=== PATIENT | female | born 1985 | race Caucasian/White ===

== ENCOUNTER 2019-01-06 02:46 | Inpatient (IN) ==
[2019-01-06] MEDS ORDERED: SODIUM CHLORIDE 0.9% 1000ML 1,000 ML IV ONE (02:55)
[2019-01-06] MEDS ORDERED: MULTI-VITAMIN INFUSION 10 ML, THIAMINE HCL 100 MG, FOLIC ACID 1 MG in SODIUM CHLORIDE 0... IV SCH ×2 (03:00→09:00)
[2019-01-06 03:06] LABS: Basophils # (auto) 0.03 K/uL (0-0.2); Basophils % (auto) 0.2 %; Eosinophils # (auto) 0.19 K/uL (0-0.5); Eosinophils % (auto) 1.1 %; Hematocrit (blood only) 39.7 % (37-47); Hemoglobin 13.2 g/dL (12.0-16.0); Immature Granulocytes # (auto) 0.05 K/uL (0.00-0.02); Immature Granulocytes % (auto) 0.3 %; Lymphocytes # (auto) 4.54 K/uL (1.2-3.4); Lymphocytes % (auto) 26.1 %; Mean Corpuscular Hgb Conc 33.2 g/dL (32-36); Mean Corpuscular Volume 80.5 fL (80-100); Mean Platelet Volume 10.2 fL (7.4-10.4); Monocytes # (auto) 0.87 K/uL (0.11-0.59); Neutrophils # (auto) 11.71 K/uL (1.4-6.5); Neutrophils % (auto) 67.3 %; Platelet Count 452 K/uL (130-400); RDW Coefficient of Variation 15.1 % (11.5-14.5); RDW Standard Deviation 44.2 fL (36.4-46.3); Red Blood Count 4.93 M/uL (4.2-5.4); White Blood Count 17.39 K/uL (4.8-10.8)
[2019-01-06 03:19] LABS: INR 1.1 (0.9-1.1); Prothrombin Time 11.3 Seconds (9.0-12.0)
[2019-01-06 03:21] LABS: Pregnancy Test, Serum Negative (Negative)
[2019-01-06 03:26] LABS: Alanine Aminotransferase 19 U/L (12-78); Albumin Level 3.7 gm/dl (3.4-5.0); Aspartate Aminotransferase 9 U/L (15-37); Blood Urea Nitrogen 8 mg/dl (7-18); Calcium 9.1 mg/dl (8.5-10.1); Carbon Dioxide 26 mmol/L (21-32); Chloride 108 mmol/L (98-107); Creatinine Clr Calc Pharmacy 127.8 ml/min; Est GFR (African American) 97.4; Glucose 81 mg/dl (70-99); Magnesium 1.9 mg/dl (1.8-2.4); Potassium 3.6 mmol/L (3.5-5.1); Sodium 142 mmol/L (136-145)
[2019-01-06 03:29] LABS: Albumin Globulin Ratio 0.8 (0.9-2); Alkaline Phosphatase 79 U/L (45-117); Bilirubin,Total 0.4 mg/dl (0.2-1); Globulin 4.4 gm/dl (2.5-4.0); Total Protein 8.1 gm/dl (6.4-8.2)
[2019-01-06 03:39] LABS: Creatine Kinase 44 U/L (26-192); NT Pro B Type Natriuretic Pept 40 pg/ml (0-450); Troponin I < 0.015 ng/ml (0-0.045)
[2019-01-06] MEDS ORDERED: GABAPENTIN 1200MG ALCOHOL WITHDRAWAL LOAD PO STA (05:00)
--- NOTE | 2019-01-06 05:19 | History & Physical Report ---
Date of Service January 06, 2019 Assessment & Plan (1) Alcohol withdrawal: Substance abuse/alcohol withdrawal/benzodiazepine withdrawal/bipolar disorder- The patient will be admitted to telemetry for serial cardiac enzymes, serial EKG's, cardiac rhythm monitoring and a 2-D echocardiogram with Dopplers. Urine drug screen is still pending. Place on alcohol withdrawal program with gabapentin and IV Ativan. Banana bag every morning. Then NSS plus KCl 20 mEq 100 mils per hour, which will be held during each banana bag every morning NPO Consult psychiatry Dr. Upton Present on Admission?: Yes (2) Benzodiazepine withdrawal: As above Present on Admission?: Yes (3) Substance abuse: As above Present on Admission?: Yes (4) HTN (hypertension): Information not been verified. Patient reports that she is on: Terra Zosyn, spironolactone, nicardipine, losartan, labetalol and hydralazine. Present on Admission?: Yes (5) Bipolar disorder: Reportedly is on Lamictal, but this is not verified. There is a Lamictal level pending. Present on Admission?: Yes (6) Obesity: Noted Present on Admission?: Yes (7) Personal history of thromboembolic disease: The patient reportedly is on both warfarin and Lovenox, both of which will be held until verified. INR is 1.1 upon admission. Order bilateral lower extremity venous Dopplers. Order CTA pulmonary embolism protocol. Present on Admission?: Yes History of Present Illness Chief Complaint: The patient is brought to the [facility] ED from the [facility], after being found to be in multi-drug withdrawal. The patient had just been transferred from [facility] with what was initially reported as only alcohol dependency, but as the patient reports also includes a benzodiazepine Xanax dependency. Primary Care Provider: Jerica Leach The patient is a 33-year-old female whose history is significantly limited due to her lethargic state, but reportedly has a past medical history including hypertension, bipolar disorder, DVT and PE, and multi-substance abuse. The patient has been transferred from [facility] to the [facility] for alcohol rehabilitation, however, when she arrived there earlier this evening she was found to be in withdrawal, and reportedly has a dependency to both alcohol and Xanax. She reports that she drinks 1 L of alcohol daily, and 20 mg of Xanax daily. She reportedly is on both warfarin and Lovenox for verified diagnosis of DVT and PE. Her history is attempted to be verified through [facility], or ever else necessary. Allergies Allergy/AdvReac Type Severity Reaction Status Date / Time quetiapine [From Seroquel] Allergy Severe Anaphylaxis Verified 01/06/19 03:06 clonazepam [From Klonopin] Allergy Intermediate Hives Verified 01/06/19 03:06 Home Medications Home Medications Medication Instructions Recorded Confirmed Type albuterol sulfate 2 puff INHALATION Q6H PRN 01/06/19 01/06/19 History enoxaparin [Lovenox] 120 mg SUBCUT Q12H 01/06/19 01/06/19 History fluticasone furoate-vilanterol 1 inh INHALATION DAILY 01/06/19 01/06/19 History [Breo Ellipta] hydralazine 25 mg PO TID 01/06/19 01/06/19 History labetalol 100 mg PO TID 01/06/19 01/06/19 History lamotrigine [Lamictal] 25 mg PO BID 01/06/19 01/06/19 History losartan 100 mg PO DAILY 01/06/19 01/06/19 History nicardipine 40 mg PO BID 01/06/19 01/06/19 History spironolactone [Aldactone] 100 mg PO DAILY 01/06/19 01/06/19 History terazosin 5 mg PO HS 01/06/19 01/06/19 History Past Med/Surg History Medical History Asthma HTN (hypertension) Pulmonary embolism Withdrawal seizures Family History Other Family history non-contributory Social History marital status: Single current occupational status: unemployed Feels Safe at Home: Yes Smoking Status: Never smoker Review of Systems Review of Systems: Review of systems is significantly limited due to patient's lethargic state. Physical Exam Physical Exam: The patient is lethargic, opens eyes minimally, mumbles unintelligible answers, normocephalic and atraumatic, lying in bed and otherwise in no acute distress. HEENT--mucous membranes and oropharynx dry. Neck--supple. No JVD. No bruits. Thyroid normal, trachea midline, no adenopathy. Heart--normal S1 and S2. No murmurs, rubs or gallops. Lungs--clear bilaterally, but diminished throughout. Abdomen--normal bowel sounds and soft. Nontender. Nondistended. Obese. Extremities--no cyanosis or clubbing. No edema. Dermatologic--normal skin turgor, normal color, no abnormal lymph nodes, no rash. Neurologic--cranial nerves II through XII grossly intact. Rheumatologic--limited exam Psychiatric--lethargic with limited exam Results & Data Vital Signs (Past 12 Hours) Vital Signs Temp Pulse Pulse Resp BP BP Pulse Ox 01/06/19 04:08 101 H 16 109/74 94 01/06/19 03:25 105 H 20 123/73 97 01/06/19 02:56 97.5 F L 110 H 20 140/118 H 98 Laboratory Results Laboratory Results WBC 17.39 K/uL (4.8-10.8) H 01/06/19 02:30 RBC 4.93 M/uL (4.2-5.4) 01/06/19 02:30 Hgb 13.2 g/dL (12.0-16.0) 01/06/19 02:30 Hct 39.7 % (37-47) 01/06/19 02:30 MCV 80.5 fL (80-100) 01/06/19 02:30 MCH 26.8 pg (25-34) 01/06/19 02:30 MCHC 33.2 g/dL (32-36) 01/06/19 02:30 RDW Std Deviation 44.2 fL (36.4-46.3) 01/06/19 02:30 RDW Coeff of Padmaja 15.1 % (11.5-14.5) H 01/06/19 02:30 Plt Count 452 K/uL (130-400) H 01/06/19 02:30 MPV 10.2 fL (7.4-10.4) 01/06/19 02:30 Immature Gran % (Auto) 0.3 % 01/06/19 02:30 Neut % (Auto) 67.3 % 01/06/19 02:30 Lymph % (Auto) 26.1 % 01/06/19 02:30 [place] % (Auto) 5.0 % 01/06/19 02:30 Eos % (Auto) 1.1 % 01/06/19 02:30 Baso % (Auto) 0.2 % 01/06/19 02:30 Immature Gran # (Auto) 0.05 K/uL (0.00-0.02) H 01/06/19 02:30 Neut # (Auto) 11.71 K/uL (1.4-6.5) H 01/06/19 02:30 Lymph # (Auto) 4.54 K/uL (1.2-3.4) H 01/06/19 02:30 [place] # (Auto) 0.87 K/uL (0.11-0.59) H 01/06/19 02:30 Eos # (Auto) 0.19 K/uL (0-0.5) 01/06/19 02:30 Baso # (Auto) 0.03 K/uL (0-0.2) 01/06/19 02:30 PT 11.3 Seconds (9.0-12.0) 01/06/19 02:30 INR 1.1 (0.9-1.1) 01/06/19 02:30 Sodium 142 mmol/L (136-145) 01/06/19 02:30 Potassium 3.6 mmol/L (3.5-5.1) 01/06/19 02:30 Chloride 108 mmol/L (98-107) H 01/06/19 02:30 Carbon Dioxide 26 mmol/L (21-32) 01/06/19 02:30 Anion Gap 8.0 (3-11) 01/06/19 02:30 BUN 8 mg/dl (7-18) 01/06/19 02:30 Creatinine 0.90 mg/dl (0.6-1.2) 01/06/19 02:30 Est Cr Clr Drug Dosing 127.8 ml/min 01/06/19 02:30 Est GFR ( Amer) 97.4 01/06/19 02:30 Est GFR (Non-Af Amer) 84.0 01/06/19 02:30 BUN/Creatinine Ratio 9.0 (10-20) L 01/06/19 02:30 Glucose 81 mg/dl (70-99) 01/06/19 02:30 Calcium 9.1 mg/dl (8.5-10.1) 01/06/19 02:30 Magnesium 1.9 mg/dl (1.8-2.4) 01/06/19 02:30 Total Bilirubin 0.4 mg/dl (0.2-1) 01/06/19 02:30 AST 9 U/L (15-37) L 01/06/19 02:30 ALT 19 U/L (12-78) 01/06/19 02:30 Alkaline Phosphatase 79 U/L (45-117) 01/06/19 02:30 Total Creatine Kinase 44 U/L (26-192) 01/06/19 02:30 Troponin I < 0.015 ng/ml (0-0.045) 01/06/19 02:30 NT-Pro-B Natriuret Pep 40 pg/ml (0-450) 01/06/19 02:30 Total Protein 8.1 gm/dl (6.4-8.2) 01/06/19 02:30 Albumin 3.7 gm/dl (3.4-5.0) 01/06/19 02:30 Globulin 4.4 gm/dl (2.5-4.0) H 01/06/19 02:30 Albumin/Globulin Ratio 0.8 (0.9-2) L 01/06/19 02:30 Lipase 100 U/L (73-393) 01/06/19 02:30 TSH 2.380 uIu/ml (0.300-4.500) 01/06/19 02:30 HCG, Qual Negative (Negative) 01/06/19 02:30 Ethyl Alcohol mg/dL < 3.0 mg/dl (0-3) 01/06/19 03:04 Code Status & VTE Plan Code Status Full code VTE Prophylaxis Plan VTE Prophylaxis will be ordered: Yes (1) Alcohol withdrawal Complication of substance-induced condition: with unspecified complication Qu alified Code(s): F10.239 - Alcohol dependence with withdrawal, unspecified (2) HTN (hypertension) Hypertension type: unspecified Qualified Code(s): I10 - Essential (primary) hypertension (3) Benzodiazepine withdrawal Complication of substance-induced condition: with unspecified complication Qualified Code(s): F13.239 - Sedative, hypnotic or anxiolytic dependence with withdrawal, unspecified
[2019-01-06] MEDS ORDERED: OPTIRAY 320 125ml IV PRN (06:21)
--- NOTE | 2019-01-06 07:06 | CT Scan Report ---
CT angio chest PE protocol CLINICAL HISTORY: 33 years-old Female presenting with EtOH withdrawal, shortness of breath, clinical concern for pulmonary embolus. TECHNIQUE: Multidetector CT angiography of the chest was performed after administration of intravenou s contrast. 3-D volumetric and/or maximum intensity projection (MIP) images were subsequently reconst ructed for review. IV contrast: 94 mL of Optiray 320. One or more dose lowering techniques were used consistent with the principles of ALARA (as low as reasonably achievable), including automatic exposu re control, mA or kV adjustment to individual patient size, and/or use of iterative reconstruction. COMPARISON: None. CT DOSE (mGy.cm): The estimated cumulative dose is 684.39 mGy.cm. FINDINGS: Hay Baler topogram: Unremarkable. Pulmonary vasculature: The study is suboptimal for the assessment of the pulmonary vascular tree secondary to timing of the contrast bolus and respiratory motion artifact. Allowing for limited image quality, no central fillin g defect to suggest pulmonary embolus. Poor opacification of left lower lobe subsegmental pulmonary a rteries amidst respiratory motion artifact are felt unlikely to represent acute pulmonary emboli. Sherrie n pulmonary artery is not enlarged. No flattening of the interventricular septum. No intracardiac gonazlez ling defect. No reflux of contrast into the hepatic veins. Remaining chest: Soft tissues: Normal thyroid and thoracic inlet. No axillary, supraclavicular, mediastinal, or hilar lymphadenopathy. Normal aorta. Normal heart size. No pericardial or pleural effusion. Upper abdomen n ormal. Lungs and airways: No pneumothorax. Central airways patent. Pulmonary arteries are not significantly enlarged relative to adjacent bronchi. Mild prominence of interlobular septae at the lung bases accom panied by peribronchial vascular thickening and bandlike opacities. Mosaic attenuation at the lung ba ses. No other focal infiltrate or nodule. Evaluation of the lung parenchyma is degraded by respirator y motion artifact. Musculoskeletal: Normal osseous structures. IMPRESSION: 1. The preliminarily reported possible filling defects in subsegmental pulmonary arteries of the lef t lower lobe are evident though the degree of limitations of this exam do not confidently for diagnos is of ulnar embolism. Suboptimal timing of the contrast bolus accompanied by significant respiratory motion artifact limits a violation on this examination to central pulmonary arteries. Allowing for th is, no central filling defect to suggest pulmonary embolus. If there is continuing clinical concern f or pulmonary embolus, repeat CTA chest when the patient is better able to breath-hold could be consid ered. 2. Extensive atelectasis and mild congestive change at the lung bases. No focal infiltrate to sugges t pneumonia or aspiration. Preliminarily findings were initially discussed with Dr. An by Dr. Webb on 01/06/2019 6:51 AM. S ubsequently, the final report with the above changes will be called/faxed according to standard depar tmental protocol. Electronically signed by: Kwesi Feng M.D. 01/06/2019 7:05 AM
--- NOTE | 2019-01-06 07:08 | Ultrasound Report ---
US venous doppler LE BI CLINICAL HISTORY: 33 years-old Female presenting with reported history of DVT, alcohol withdrawal, sh ortness of breath, clinical concern for pulmonary embolus, equivocal CTA chest, nonresponsive patient . TECHNIQUE: Real-time grayscale and color and spectral Doppler ultrasound imaging of the veins of the bilateral lower extremities was performed. Compression and augmentation were also utilized. COMPARISON: None. FINDINGS: Sonographic evaluation is degraded by patient body habitus which mildly limits diagnostic sensitivity the exam. RIGHT: Common femoral vein: Patent. Greater saphenous vein (superficial): Patent. Deep femoral vein: Patent. Femoral vein: Patent. Popliteal vein: Patent. Calf veins: Patent. LEFT: Common femoral vein: Patent. Greater saphenous vein (superficial): Patent. Deep femoral vein: Patent. Femoral vein: Patent. Popliteal vein: Patent. Calf veins: Patent. Other: None. IMPRESSION: No evidence of deep venous thrombosis. Electronically signed by: Kwesi Feng M.D. 01/06/2019 7:07 AM
--- NOTE | 2019-01-06 07:28 | XRay Report ---
XR chest 1V portable CLINICAL HISTORY: 33 years-old Female presenting with nausea, etoh withdrawal. TECHNIQUE: Portable upright AP view of the chest was obtained. COMPARISON: None. FINDINGS: Cardiomediastinal silhouette normal. Mildly low lung volumes. Bandlike opacities at the lung bases. N o large effusion or pneumothorax. Osseous structures normal. Upper abdomen normal. IMPRESSION: 1. Minimal basilar opacities likely atelectasis or scarring. No convincing evidence of acute cardiop ulmonary disease. Electronically signed by: Kwesi Feng M.D. 01/06/2019 7:27 AM
[2019-01-06] MEDS ORDERED: ATIVAN IV ALCOHOL WITHDRAWL IV SCH (07:29)
[2019-01-06] MEDS ORDERED: ALBUT/IPRATROP 3MG/0.5MG NEB 3 ML VIAL NEB PRN (07:29)
--- NOTE | 2019-01-06 07:54 | Emergency Department Note ---
Entered by Mary Noyola acting as a scribe for History of Present Illness General Chief complaint: Alcohol Withdrawal Stated complaint: withdrawl Time Seen by Provider: 01/06/19 02:55 Source: patient Mode of arrival: EMS History of Present Illness Onset (ago): minute(s) (prior to arrival) Location: head Pain Consistency: + other (episode) Maximum Pain Intensity: 6 Quality: + other (alcohol withdrawal) Relieved By: not by medication (Ativan, Clonidine) Associated symptoms: + denies other symptoms (urinary symptoms, trouble moving bowels) and + other (tremors) The patient is a 33 year old female who presents to the ED with complaints of an episode of alcohol withdrawal occurring prior to arrival. The patient states that she has a history of using 20 mg of Xanax for the past 14 years and drinking a liter of alcohol for the past 10 years. She states that she has a history of seizures when she withdrawals. She states that yesterday she decided to get help at [facility]. She states that they were trying to find her a dual facility, but when the [facility] answered right away, they decided to send her there. She states that she arrived 4 hours ago and started having tremors. The patient states that they tried giving her Ativan and Clonidine with no relief. EMS notes that they gave her 4 of Ativan and 5 of Versed. The patient complains of body aches. The patient denies urinary symptoms and trouble moving her bowels. Patient states she has a prior history of delirium tremens and has had withdrawal related seizures. Patient also states she has a history of hypertension as well as recent PE/DVT for which she is on Coumadin. She states her Coumadin level was recently lower than what it should be so the Lovenox was also added daily. Patient denies any recent bleeding from any source, including black or bloody stools. Patient denies any current chest pain or trouble breathing. Patient states she has been compliant with her medications. Home Medications Home Medications Medication Instructions Recorded Confirmed Type albuterol sulfate 2 puff INHALATION Q6H PRN 01/06/19 01/06/19 History enoxaparin [Lovenox] 120 mg SUBCUT Q12H 01/06/19 01/06/19 History fluticasone furoate-vilanterol 1 inh INHALATION DAILY 01/06/19 01/06/19 History [Breo Ellipta] hydralazine 25 mg PO TID 01/06/19 01/06/19 History labetalol 100 mg PO TID 01/06/19 01/06/19 History lamotrigine [Lamictal] 25 mg PO BID 01/06/19 01/06/19 History losartan 100 mg PO DAILY 01/06/19 01/06/19 History nicardipine 40 mg PO BID 01/06/19 01/06/19 History spironolactone [Aldactone] 100 mg PO DAILY 01/06/19 01/06/19 History terazosin 5 mg PO HS 01/06/19 01/06/19 History Allergies Allergy/AdvReac Type Severity Reaction Status Date / Time quetiapine [From Seroquel] Allergy Severe Anaphylaxis Verified 01/06/19 03:06 clonazepam [From Klonopin] Allergy Intermediate Hives Verified 01/06/19 03:06 Past Med/Surg History Medical History Asthma HTN (hypertension) Pulmonary embolism Withdrawal seizures Family History Other Family history non-contributory Social History Preferred Language: Honduran Communication Ability: Effective Sample Room Supervisor Required: No Beliefs That Will Affect Care: None marital status: Single Current Living Situation: Rehab current occupational status: unemployed Other Information That Helps Us Care for You: No Feels Safe at Home: Yes Safety Concerns: Feels Safe At This Time Smoking Status: Former smoker Do You Dip or Chew Tobacco: No Hx Alcohol Use: Yes Alcohol type: hard liquor Hx Substance Use: Yes substance use type: prescription drug Substance Use Type Other:: Xanax - 20mg per day report Thursday 01/04 Last Used Substance: Days (ago) Review of Systems See HPI for pertinent positives & negatives. and A total of 10 systems reviewed and were otherwise negative Physical Exam Vital Signs Vital Signs - 24 hr 01/06/19 02:56 01/06/19 03:25 01/06/19 04:08 Temperature 36.4 C L Temperature Source Oral Sepsis Recent Fever Within 48 Hours No Sepsis New/Unexplained Change in Mental Status No Sepsis Action Taken by Nursing No Action Required Pulse Rate 110 H Pulse Rate [Right] 105 H 101 H Pulse Rhythm [Right] Regular Regular Pulse Strength [Right] Normal Normal Respiratory Rate 20 20 16 Respiratory Effort / Characteristics Non-Labored Spontaneous Non-Labored Spontaneous Non-Labored Spontaneous Respiratory Depth Normal Normal Normal Blood Pressure 140/118 H Blood Pressure [Right Arm] 123/73 109/74 Blood Pressure Mean 125 Blood Pressure Mean [Right Arm] 89 85 Pulse Oximetry 98 97 94 Oxygen Delivery Method Room Air Room Air Room Air GENERAL: alert, uncomfortable appearing, well nourished, no distress, non-toxic EYE EXAM: normal conjunctiva, PERRL and EOM's grossly intact, no nystagmus OROPHARYNX: no exudate, no erythema, lips, buccal mucosa, and tongue normal and mucous membranes are mildly dry NECK: supple, no nuchal rigidity, no adenopathy, non-tender LUNGS: Diminished breath sounds. No wheezes, rhonchi, or rales. Normal chest wall mechanics HEART: Tachycardic rate, no murmurs, S1 normal and S2 normal ABDOMEN: abdomen soft and obese, non-tender, normo-active bowel sounds, no masses, no rebound or guarding. BACK: Back is symmetrical on inspection and there is no deformity, no midline tenderness, no CVA tenderness. SKIN: no rashes and no bruising, no petechiae UPPER EXTREMITIES: upper extremities are grossly normal. FROM, nml pulses b/l. LOWER EXTREMITIES: No pitting edema. FROM, nml pulses b/l. No calf tenderness. NEURO EXAM: Normal sensorium, cranial nerves II-XII grossly intact, normal speech, no gross weakness of arms, no gross weakness of legs. Tremors noted. No asterixis. Course 0248: Past medical records reviewed. The patient was evaluated in room B4B. A complete history and physical exam was performed. 0324: I reevaluated the patient and her heart rate and blood pressure have improved. The patient complains of generalized muscle soreness. I discussed the patient's test results and the treatment plan with her. She verbally agrees and understands. 0413: I discussed the patient's case with Dr. Juan Pablo Stack. He will evaluate the patient for further management. Consultations Consultation #1: I discussed the patient's case with Dr. Juan Pablo Stack. He will evaluate the patient for further management. Time: 04:13 Administered Medications Multivitamins 10 ml/ Thiamine HCl 100 mg/ Folic Acid 1 mg/Sodium Chloride 1,011.2 mls @ 200 mls/hr IV .Q5H4M ZACHARIAH Stop: 01/06/19 08:03 Last Admin: 01/06/19 03:09 Dose: 200 mls/hr Documented by: [id number] Ioversol (Optiray 320 125ml) 125 ml IV ONCE PRN PRN Reason: Interaction Checking Stop: 01/10/19 06:20 Last Admin: 01/06/19 06:22 Dose: 94 ml Documented by: [id number] Discontinued Medications Sodium Chloride (Nss 1000ml) 1,000 mls @ 999 mls/hr IV .Q1H1M ONE Stop: 01/06/19 03:55 Last Infusion: 01/06/19 04:14 Dose: 0 mls/hr Documented by: [id number] Admin: 01/06/19 03:10 Dose: 999 mls/hr Documented by: [id number] Medical Decision Making Differential Diagnosis Differential diagnosis: Etiologies such as toxicological process, infection, hypoglycemia, electrolyte abnormalities, cardiac sources, intracerebral event, neurologic process, as well as others were entertained. Medical Records Attestation: I reviewed the patient's medical records. Home Medications Current Medication List: was personally reviewed by me Laboratory Data Attestation: I reviewed the patient's lab results. Result diagrams: 01/06/19 02:30 01/06/19 02:30 Lab Results 01/06/19 01/06/19 01/06/19 Range/Units 02:30 02:30 02:30 WBC 17.39 H (4.8-10.8) K/uL RBC 4.93 (4.2-5.4) M/uL Hgb 13.2 (12.0-16.0) g/dL Hct 39.7 (37-47) % MCV 80.5 (80-100) fL MCH 26.8 (25-34) pg MCHC 33.2 (32-36) g/dL RDW Std Deviation 44.2 (36.4-46.3) fL RDW Coeff of Padmaja 15.1 H (11.5-14.5) % Plt Count 452 H (130-400) K/uL MPV 10.2 (7.4-10.4) fL Immature Gran % (Auto) 0.3 % Neut % (Auto) 67.3 % Lymph % (Auto) 26.1 % Ward % (Auto) 5.0 % Eos % (Auto) 1.1 % Baso % (Auto) 0.2 % Immature Gran # (Auto) 0.05 H (0.00-0.02) K/uL Neut # (Auto) 11.71 H (1.4-6.5) K/uL Lymph # (Auto) 4.54 H (1.2-3.4) K/uL Ward # (Auto) 0.87 H (0.11-0.59) K/uL Eos # (Auto) 0.19 (0-0.5) K/uL Baso # (Auto) 0.03 (0-0.2) K/uL PT 11.3 (9.0-12.0) Seconds INR 1.1 (0.9-1.1) Sodium 142 (136-145) mmol/L Potassium 3.6 (3.5-5.1) mmol/L Chloride 108 H (98-107) mmol/L Carbon Dioxide 26 (21-32) mmol/L Anion Gap 8.0 (3-11) BUN 8 (7-18) mg/dl Creatinine 0.90 (0.6-1.2) mg/dl Est Cr Clr Drug Dosing 127.8 ml/min Est GFR ( Amer) 97.4 Est GFR (Non-Af Amer) 84.0 BUN/Creatinine Ratio 9.0 L (10-20) Glucose 81 (70-99) mg/dl Calcium 9.1 (8.5-10.1) mg/dl Magnesium 1.9 (1.8-2.4) mg/dl Total Bilirubin 0.4 (0.2-1) mg/dl AST 9 L (15-37) U/L ALT 19 (12-78) U/L Alkaline Phosphatase 79 (45-117) U/L Total Creatine Kinase 44 (26-192) U/L Troponin I < 0.015 (0-0.045) ng/ml NT-Pro-B Natriuret Pep 40 (0-450) pg/ml Total Protein 8.1 (6.4-8.2) gm/dl Albumin 3.7 (3.4-5.0) gm/dl Globulin 4.4 H (2.5-4.0) gm/dl Albumin/Globulin Ratio 0.8 L (0.9-2) Lipase 100 (73-393) U/L TSH 2.380 (0.300-4.500) uIu/ml HCG, Qual (Negative) Ethyl Alcohol mg/dL (0-3) mg/dl 01/06/19 01/06/19 Range/Units 02:30 03:04 WBC (4.8-10.8) K/uL RBC (4.2-5.4) M/uL Hgb (12.0-16.0) g/dL Hct (37-47) % MCV (80-100) fL MCH (25-34) pg MCHC (32-36) g/dL RDW Std Deviation (36.4-46.3) fL RDW Coeff of Padmaja (11.5-14.5) % Plt Count (130-400) K/uL MPV (7.4-10.4) fL Immature Gran % (Auto) % Neut % (Auto) % Lymph % (Auto) % Ward % (Auto) % Eos % (Auto) % Baso % (Auto) % Immature Gran # (Auto) (0.00-0.02) K/uL Neut # (Auto) (1.4-6.5) K/uL Lymph # (Auto) (1.2-3.4) K/uL Ward # (Auto) (0.11-0.59) K/uL Eos # (Auto) (0-0.5) K/uL Baso # (Auto) (0-0.2) K/uL PT (9.0-12.0) Seconds INR (0.9-1.1) Sodium (136-145) mmol/L Potassium (3.5-5.1) mmol/L Chloride (98-107) mmol/L Carbon Dioxide (21-32) mmol/L Anion Gap (3-11) BUN (7-18) mg/dl Creatinine (0.6-1.2) mg/dl Est Cr Clr Drug Dosing ml/min Est GFR ( Amer) Est GFR (Non-Af Amer) BUN/Creatinine Ratio (10-20) Glucose (70-99) mg/dl Calcium (8.5-10.1) mg/dl Magnesium (1.8-2.4) mg/dl Total Bilirubin (0.2-1) mg/dl AST (15-37) U/L ALT (12-78) U/L Alkaline Phosphatase (45-117) U/L Total Creatine Kinase (26-192) U/L Troponin I (0-0.045) ng/ml NT-Pro-B Natriuret Pep (0-450) pg/ml Total Protein (6.4-8.2) gm/dl Albumin (3.4-5.0) gm/dl Globulin (2.5-4.0) gm/dl Albumin/Globulin Ratio (0.9-2) Lipase (73-393) U/L TSH (0.300-4.500) uIu/ml HCG, Qual Negative (Negative) Ethyl Alcohol mg/dL < 3.0 (0-3) mg/dl Imaging Data Attestation: I personally reviewed and interpreted this imaging study as follows: My Impression: CHEST X-RAY: The results were interpreted by me. No cardiomegaly. Questionable small left pleural effusion. No wide mediastinum. No pneumothorax. No rib fractures. ECG Data Attestation: I personally reviewed and interpreted this ECG as follows: Indication: toxicologic Rate (beats per minute): 115 Rhythm: sinus tachycardia Findings: + other (baseline artifact, prolonged QT-c, QRS normal); no PAC, no PVC, no ST depression, no ST elevation, no acute ischemic change and no ectopy Comparison ECG Date: no prior available Blood Pressure Blood Pressure Findings: Elevated blood pressure Blood Pressure Disposition: further management by hospitalist LISE Narrative Patient here with concerning story after being sent here from the [facility] due to likely symptoms of alcohol and benzodiazepine withdrawal. Patient with long- standing history of alcohol and drug abuse. Patient with prior significant history of hospitalization for DTs and withdrawal related seizures. According to EMS, patient symptoms were improved after they gave her additional domingo odiazepines in route. Patient arrived here tachycardic and hypertensive and still very tremulous but stating she did feel improved. IV started and labs sent. Patient was given normal saline and then a banana bag was started. Patient did have QTC prolongation noted on the first EKG although some of this may have been artifactual given the severe baseline artifact due to her tremors. Patient's other electrolytes were within normal range including magnesium. Patient's INR was found to be subtherapeutic. Patient denied any symptoms to suggest worsening clot burden despite recent history of DVT/PE. No lower extremity edema or calf tenderness noted. Case discussed with hospitalist for ongoing management and monitoring given significant risk. Patient was made aware of all results in agreement with plan. No seizure-like activity noted while patient was in the emergency room. Impression & Plan Alcohol withdrawal, Benzodiazepine withdrawal, Substance abuse, HTN (hypertension) Discharge Plan Visit Data Chief Complaint: Alcohol Withdrawal Stated Complaint: withdrawl ED Provider: Do An Discharge Problem: Alcohol withdrawal, Benzodiazepine withdrawal, Substance abuse, HTN (hypertension) Patient Disposition: Being Evaluated by Hospitalist Discharge Instructions Interventions: ED Discharge Assessment Last Done: 01/06/19 06:43 Discharge Problem: Alcohol withdrawal Qualifiers: Complication of substance-induced condition: with unspecified complication Qualified Code(s): F10.239 - Alcohol dependence with withdrawal, unspecified Benzodiazepine withdrawal Qualifiers: Complication of substance-induced condition: with unspecified complication Qualified Code(s): F13.239 - Sedative, hypnotic or anxiolytic dependence with withdrawal, unspecified HTN (hypertension) Qualifiers: Hypertension type: unspecified Qualified Code(s): I10 - Essential (primary) hypertension The scribe's documentation has been prepared under my direction and personally reviewed by me in its entirety. I confirm that the note above accurately reflects all work, treatment, procedures, and medical decision making performed by me.
[2019-01-06] MEDS ORDERED: GABAPENTIN 600 MG TAB PO SCH (08:00)
[2019-01-06] MEDS ORDERED: LORAZEPAM 3MG IV ACTIVE PROTOCOL IV PRN (09:30)
[2019-01-06] MEDS: LORAZEPAM 1MG IV ACTIVE PROTOCOL IV PRN (10:37)
--- NOTE | 2019-01-06 11:04 | Psychiatric Consultation ---
Date of Consultation January 06, 2019 Impression / Recommendations (1) Bipolar disorder: 01/06 -very little information is available at this time, as there are no records from the [facility] describing patient's presenting symptoms or initial labs. She reports taking lamotrigine 25 mg twice daily, which was recently restarted for mood, and can be continued here. -Collateral information would be useful, but the patient states she has no supports or family and nobody that we can talk to to provide this. She states she has no current outpatient providers. -Patient is currently on a 302 involuntary commitment which will 01/10/2019 around 1 PM. He will therefore need to make a decision about the need to file for a 303 involuntary commitment by , to allow time for the hearing. We will continue to follow her and to gather information for the need for ongoing mental health treatment. Present on Admission?: Yes (2) Alcohol withdrawal: 01/06 -patient reports history of DTs and withdrawal seizures, drinking 1 L of vodka daily for many years combined with severe alprazolam abuse, so is at extremely high risk for complicated withdrawal. Recommend aggressive treatment, is already on the gabapentin taper. Complication of substance-induced condition: with unspecified complication Qualified Code(s): F10.239 - Alcohol dependence with withdrawal, unspecified Present on Admission?: Yes (3) Benzodiazepine withdrawal: See above. Complication of substance-induced condition: with unspecified complication Qualified Code(s): F13.239 - Sedative, hypnotic or anxiolytic dependence with withdrawal, unspecified Present on Admission?: Yes Psych History Identifying Data 33 y/o F from [place] who was admitted to [facility] yesterday on a 302 for suicidality (transferred from [facility]), and was then transferred to our ER for alcohol and benzodiazepine withdrawal and was admitted medically. Chief Complaint "Like crap". History of Present Illness MR. No records available from the [facility] or [facility]. According to our records, the patient was transferred from the [facility] overnight for active withdrawal symptoms. She had just been admitted there yesterday on a 302 involuntary commitment on referral from [facility]. Per ER case management, the 302 petition states that the patient endorsed suicidal thoughts with a plan to overdose or walk in front of a car. En route to the hospital she received Lorazepam 4 mg and Versed 5 mg. In the ER, she reported drinking a liter of liquor daily for the past 10 years, and using 20 mg of alprazolam daily for the last 14 years. She reported a history of delirium tremens and withdrawal seizures, hypertension, and PE/DVT for which she is on Coumadin. She said she went to [facility] and they were trying to refer her for dual diagnosis treatment, but instead sent her to the [facility]. A drug screen was ordered in the ER but not obtained. She was started on AWSS withdrawal protocol with gabapentin taper and lorazepam as needed. On my assessment, she is somnolent but partially cooperative with the interview. She states she feels "terrible," is nauseated and tremulous. She confirms she has been drinking a liter of vodka daily and taking 20 mg of alprazolam daily for many years. She also reports a remote history of opiate abuse, last about 6 years ago. She states she went to a local hospital requesting voluntary dual diagnosis treatment, and did not want to go to the [facility] because she was concerned about the severity of her medical conditions, but because they accepted her, was forced to go by being placed on a 302. She states she was hospitalized in an ICU in 07/2018 and 10/2018 for PEs and hypotension. She reports taking lamotrigine 25 mg twice daily, which she says was restarted within the past few months. She states she has no supports, no family, and nobody she would like to notify or involving her treatment. Due to somnolence, she was unable to participate in a detailed psychiatric assessment, and only answered questions briefly. Past Psychiatric History Previous Psych History: Patient reports a history of bipolar disorder Current Psychiatric Diagnosis: Bipolar disorder per patient Outpatient Services: None currently. Previous Psych Admissions: Unknown Past Medication Trials: Unknown Allergies Allergy/AdvReac Type Severity Reaction Status Date / Time quetiapine [From Seroquel] Allergy Severe Anaphylaxis Verified 01/06/19 03:06 clonazepam [From Klonopin] Allergy Intermediate Hives Verified 01/06/19 03:06 Home Medications Home Medications Medication Instructions Recorded Confirmed Type albuterol sulfate 2 puff INHALATION Q6H PRN 01/06/19 01/06/19 History enoxaparin [Lovenox] 120 mg SUBCUT Q12H 01/06/19 01/06/19 History fluticasone furoate-vilanterol 1 inh INHALATION DAILY 01/06/19 01/06/19 History [Breo Ellipta] hydralazine 25 mg PO TID 01/06/19 01/06/19 History labetalol 100 mg PO TID 01/06/19 01/06/19 History lamotrigine [Lamictal] 25 mg PO BID 01/06/19 01/06/19 History losartan 100 mg PO DAILY 01/06/19 01/06/19 History nicardipine 40 mg PO BID 01/06/19 01/06/19 History spironolactone [Aldactone] 100 mg PO DAILY 01/06/19 01/06/19 History terazosin 5 mg PO HS 01/06/19 01/06/19 History Substance Abuse History Patient reports drinking 1 L of vodka daily for the past 10 years, and taking 20 mg of alprazolam daily for the past 14 years. She has a history of DTs and withdrawal seizures. She reports a history of fentanyl and opiate abuse, last 6 years ago. Personal History Living Arrangements Comments: Alone in [place]. Is from the [facility], and recently moved back there after living in [place]. Employment Status: Unemployed Beliefs That Will Affect Care: None Patient History Medical History Asthma HTN (hypertension) Pulmonary embolism Withdrawal seizures Family History Other Family history non-contributory Social History Preferred Language: Telugu Communication Ability: Effective Right Of Way Cutter Required: No Beliefs That Will Affect Care: None marital status: Single Current Living Situation: Rehab current occupational status: unemployed Other Information That Helps Us Care for You: No Feels Safe at Home: Yes Safety Concerns: Feels Safe At This Time Smoking Status: Former smoker Do You Dip or Chew Tobacco: No Hx Alcohol Use: Yes Alcohol type: hard liquor Hx Substance Use: Yes substance use type: prescription drug Substance Use Type Other:: Xanax - 20mg per day report Thursday 01/04 Last Used Substance: Days (ago) Physical Exam Psychiatric: Lying in bed with covers pulled up to cover her face. Keeps eyes closed, does not make eye contact. Malodorous. Motor Behavior: + tremor Head is tremulous. Minimal speech. Affect: + constricted affect (To ill and uncomfortable.) "Like crap." Thought Process: goal directed thought process Thought Content: reality based without delusions Suicidal Thoughts: denies suicidal thoughts Admits to suicidal thoughts yesterday, but feels safe here. Homicidal Thoughts: denies homicidal thoughts Hallucinations: no auditory hallucinations and no visual hallucinations Cognition: recent memory grossly intact, attention grossly intact and language grossly intact Insight: + impaired insight Judgement: + impaired judgement Vital Signs (Past 24 Hours): Last Vital Signs Temp 36.4 C L 01/06/19 07:31 Pulse 102 H 01/06/19 07:31 Resp 16 01/06/19 07:31 BP 135/81 01/06/19 07:31 Pulse Ox 99 01/06/19 07:31 Review of Systems Unobtainable due to reduced consciousness Results & Data Medications Administered Multivitamins 10 ml/ Thiamine HCl 100 mg/ Folic Acid 1 mg/Sodium Chloride 1,011.2 mls @ 500 mls/hr IV .Q2H2M ZACHARIAH Stop: 01/06/19 11:01 Last Admin: 01/06/19 09:10 Dose: 500 mls/hr Documented by: [id number] Lorazepam (Ativan) 1 mg in 2 mls @ 2 mls/min IV Q1H PRN; Protocol PRN Reason: Symptoms of alcohol withdrawal Stop: 02/05/19 09:29 Last Admin: 01/06/19 10:37 Dose: 2 mls/min Documented by: [id number] Ioversol (Optiray 320 125ml) 125 ml IV ONCE PRN PRN Reason: Interaction Checking Stop: 01/10/19 06:20 Last Admin: 01/06/19 06:22 Dose: 94 ml Documented by: [id number]
--- NOTE | 2019-01-06 13:21 | History & Physical Bridge Note ---
Date of Service January 06, 2019 History & Physical Bridge Note Patient seen and examined today. Sleeping comfortably on my arrival. High uses of alcohol and benzos. Will monitor for withdrawal. - Breathing comfortably - Continue home meds - CT and Doppler do not show PE/DVT -> Hold anticoagulation at this time; will monitor
[2019-01-06] MEDS: GABAPENTIN 600 MG TAB PO SCH ×2 (14:05→20:58)
[2019-01-06] MEDS ORDERED: ENOXAPARIN INJ 120 MG/0.8 ML SYR SQ SCH (14:45)
[2019-01-06 15:10] LABS: Appearance Urine Clear (Clear); Bilirubin Urine Negative (Negative); Blood Urine Negative (Negative); Color Urine Yellow; Glucose Urine UA Negative (Negative); Ketones Urine Negative (Negative); Leukocyte Esterase Urine Negative (Negative); Nitrite Urine Negative (Negative); Protein Urine Negative (Negative); Specific Gravity Urine > 1.045 (1.000-1.030); Urobilinogen Urine Negative (Negative); pH Urine 5.5 (4.5-7.5)
[2019-01-06 15:30] LABS: Amphetamines+Metham, Urine Neg (Neg); Barbiturates, Urine Neg (Neg); Benzodiazepine, Urine Pos (Neg); Cocaine, Urine Neg (Neg); MDMA (Ecstacy), Urine Neg (Neg); Methadone, Urine Neg (Neg); Opiate, Urine Neg (Neg); Phencyclidine, Urine Neg (Neg)
[2019-01-06] MEDS: WARFARIN SOD 2.5 MG TAB PO SCH (17:57)
[2019-01-06] MEDS: WARFARIN SOD 10 MG TAB PO SCH (18:00)
[2019-01-06] MEDS: lamoTRIgine 25 MG TAB PO SCH (20:59)
[2019-01-06] MEDS: LABETALOL HCL 100 MG TAB PO SCH (20:59)
[2019-01-07] MEDS: LORAZEPAM 2MG IV ACTIVE PROTOCOL IV PRN (00:15)
[2019-01-07] MEDS ORDERED: ALBUTEROL HFA 8 GM INHALER INH PRN (00:32)
[2019-01-07] MEDS: SPIRONOLACTONE 100 MG TAB PO SCH ×3 (00:44→08:22)
[2019-01-07] MEDS: TERAZOSIN HCL 5 MG CAP PO SCH ×2 (00:44→21:17)
[2019-01-07 05:46] LABS: Hematocrit (blood only) 34.2 % (37-47); Hemoglobin 10.9 g/dL (12.0-16.0); Mean Corpuscular Hgb Conc 31.9 g/dL (32-36); Mean Platelet Volume 10.1 fL (7.4-10.4); Platelet Count 281 K/uL (130-400); RDW Coefficient of Variation 14.9 % (11.5-14.5); RDW Standard Deviation 43.9 fL (36.4-46.3); Red Blood Count 4.22 M/uL (4.2-5.4)
[2019-01-07] MEDS: GABAPENTIN 600 MG TAB PO SCH ×3 (06:04→21:10)
[2019-01-07 06:15] LABS: Creatinine Clr Calc Pharmacy 190.4 ml/min; Est GFR (African American) 138.8; Est GFR (Non-African American) 119.8
[2019-01-07] MEDS: ENOXAPARIN INJ 120 MG/0.8 ML SYR SQ SCH ×2 (08:14→20:43)
[2019-01-07] MEDS: LOSARTAN POTASSIUM 50 MG TAB PO SCH (08:14)
[2019-01-07] MEDS: LABETALOL HCL 100 MG TAB PO SCH ×3 (08:14→20:44)
[2019-01-07] MEDS: lamoTRIgine 25 MG TAB PO SCH ×2 (08:15→20:42)
[2019-01-07] MEDS: LORAZEPAM 1MG IV ACTIVE PROTOCOL IV PRN ×2 (08:28→13:47)
--- NOTE | 2019-01-07 12:12 | Psychiatric Progress Note ---
Date of Service January 07, 2019 Impression / Recommendations Impression 33-year-old female with reported history of bipolar disorder and severe alcohol and alprazolam addiction who is admitted medically after transfer from the [facility] for withdrawal. She is on the gabapentin taper and has received low- dose lorazepam for withdrawal symptoms, but appears distressed in her withdrawal, and is tremulous and so nauseated she is unable to eat. She has a history of severe withdrawal and has been using large amounts of alcohol and alprazolam, so is likely to have severe withdrawal symptoms. She is denying acute suicidality, but would like to get placed back on a previous regimen of lamotrigine and venlafaxine XR, which she found helpful. She is willing for rehab, and would benefit from a medically based program once she is through detox and is sufficiently stable for transfer. (1) Bipolar disorder: 01/06 -very little information is available at this time, as there are no records from the [facility] describing patient's presenting symptoms or initial labs. She reports taking lamotrigine 25 mg twice daily, which was recently restarted for mood, and can be continued here. -Collateral information would be useful, but the patient states she has no supports or family and nobody that we can talk to to provide this. She states she has no current outpatient providers. -Patient is currently on a 302 involuntary commitment which will 01/10/2019 around 1 PM. He will therefore need to make a decision about the need to file for a 303 involuntary commitment by , to allow time for the hearing. We will continue to follow her and to gather information for the need for ongoing mental health treatment. 01/07 -patient is evasive regarding her last outpatient psychiatrist, declining to sign a release so that records can be obtained. -She reports lamotrigine and venlafaxine XR combination was helpful for her, but notes she decompensated when on venlafaxine without being on a good dose of a mo od stabilizer. We will therefore start by increasing her lamotrigine to 100 mg daily. In another week, it can be increased to 200 mg daily. She reports taking 400 mg daily in the past. -She will need outpatient psychiatric care in her area upon completion of rehab. Her insurance is switching to her current [facility] at the beginning of January, and she will then be able to set up services. Present on Admission?: Yes (2) Alcohol withdrawal: 01/06 -patient reports history of DTs and withdrawal seizures, drinking 1 L of vodka daily for many years combined with severe alprazolam abuse, so is at extremely high risk for complicated withdrawal. Recommend aggressive treatment, is already on the gabapentin taper. 01/07 -patient reporting uncomfortable withdrawal symptoms, and is requiring as needed Ativan. Discussed with Dr. Snow, who agreed to adding Librium to her current withdrawal regimen -will start with 25 mg 3 times daily, and taper before discharge. Would not discharge her on any benzodiazepines due to the high risk of abuse/misuse/negative outcomes. -She is willing for inpatient rehab, and we will explore options. Present on Admission?: Yes (3) Benzodiazepine withdrawal: See above. Present on Admission?: Yes Risk Factors Assessment Male: No : Yes Health Problems: Yes Mental Health Diagnoses: Yes Substance Use Disorders: Yes Previous Psychiatric Hospitalization: Yes Hopelessness: No Protective Factors Assessment : No Responsible for Young Children: No Employed: No Supportive Family: Yes Absence of Any Risk Factors Above: Yes (Denies suicidality, willing for treatment.) Interval History Chief Complaint "I am nauseated, all that fun stuff that comes with it". Review of Systems Notes No hallucinations, vomiting, diarrhea. + Nausea Subjective Subjective Patient was seen & assessed and interval progress reviewed. Per records, withdrawal symptoms continue, and she received 1 mg of lorazepam yesterday and again today. On my assessment, she is reclining in her hospital bed, appears more alert and less distressed than yesterday. She reports continued withdrawal symptoms including nausea, has not eaten in days, tremulousness, and high anxiety. She denies diarrhea and vomiting. She states that she was already experiencing withdrawal when she presented to the outside hospital ER. She reports chronic passive suicidal ideation, stating "it's always there, but it's not something I'm gonna act on." She states she was not suicidal when she presented to the outside hospital, but told them she has had a plan in the past, and that is what they used to 3 oh to her. She denies any thoughts or intent to harm herself currently. She reports that she was recently started back on lamotrigine, which has been effective for her in the past at a dose of 400 mg daily. The best regimen that she was on was lamotrigine and venlafaxine XR, but she notes that if she is on the antidepressant before her lamotrigine is at a therapeutic dose, "it makes me crazy." Her goal is to get back on this regimen. She does not of current outpatient providers because she still has MA in [place], and it will not switch to the [facility] until January 26. She states that her current insurance agreed to pay for rehab at a facility in the [facility], so that her new insurance could take over next month. She reports a long history of substance abuse starting at age 14 with IV heroin. She began drinking heavily in her early 20s, and has been to numerous rehabs in the [facility]. Summary of Past History Multiple previous psychiatric hospitalizations, including [facility], [place] (within the past month), [place] Multiple previous rehabs in the [facility] Medication Trials Include but not limited to: Citalopram, paroxetine, sertraline, venlafaxine XR, aripiprazole, lamotrigine Physical Exam Mental Examination Obese white female appearing her stated age. Dressed in paper scrubs, adequate grooming and hygiene. Reclining in bed in no acute distress. Mild tremulou sness, awake and alert. Cooperative with the assessment. Mood is "super high anxiety from the detox," and affect is anxious with an irritable edge. Speech is normal rate, volume, and tone. Thoughts are linear and goal directed. Denies SI, HI, hallucinations, and paranoia. No delusions evident. Alert and oriented. Level of intelligence estimated to be at least average. Insight and judgment are fair. Vital Signs (Past 24 Hours) Last Vital Signs Temp 36.8 C 01/07/19 11:42 Pulse 116 H 01/07/19 11:42 Resp 20 01/07/19 11:42 BP 132/82 01/07/19 11:42 Pulse Ox 95 01/07/19 11:42 Results & Data Laboratory Results Laboratory Results - last 24 hr 01/06/19 01/06/19 01/06/19 14:40 14:40 14:40 WBC RBC Hgb Hct MCV MCH MCHC RDW Std Deviation RDW Coeff of Padmaja Plt Count MPV Creatinine Est Cr Clr Drug Dosing Est GFR ( Amer) Est GFR (Non-Af Amer) Urine Color Yellow Urine Appearance Clear Urine pH 5.5 Ur Specific [place] > 1.045 H Urine Protein Negative Urine Glucose (UA) Negative Urine Ketones Negative Urine Blood Negative Urine Nitrite Negative Urine Bilirubin Negative Urine Urobilinogen Negative Ur Leukocyte Esterase Negative Urine Opiates Screen Neg Ur Methadone, Qual Neg Urine Barbiturates Neg Ur Phencyclidine (PCP) Neg U Amphetamin/Meth Scrn Neg MDMA (Ecstasy) Screen Neg U OH-Alprazolam Confrm Pending U Benzodiazepines Scrn Pos H 7-Amino Clonazepam Pending Ur Nordiazepam Confirm Pending U OH-ethylflurazepam Pending U Lorazepam Cnf GC/MS Pending U Oxazepam Confm GC/MS Pending Ur Temazepam Confirm Pending U OH-Triazolam Confirm Pending U OH-Midazolam Confirm Pending Ur Cocaine Metabolite Neg U Marijuana (THC) Screen Neg 01/07/19 01/07/19 05:17 05:17 WBC 7.80 RBC 4.22 Hgb 10.9 L Hct 34.2 L MCV 81.0 MCH 25.8 MCHC 31.9 L RDW Std Deviation 43.9 RDW Coeff of Padmaja 14.9 H Plt Count 281 MPV 10.1 Creatinine 0.60 D Est Cr Clr Drug Dosing 190.4 Est GFR ( Amer) 138.8 Est GFR (Non-Af Amer) 119.8 Urine Color Urine Appearance Urine pH Ur Specific [place] Urine Protein Urine Glucose (UA) Urine Ketones Urine Blood Urine Nitrite Urine Bilirubin Urine Urobilinogen Ur Leukocyte Esterase Urine Opiates Screen Ur Methadone, Qual Urine Barbiturates Ur Phencyclidine (PCP) U Amphetamin/Meth Scrn MDMA (Ecstasy) Screen U OH-Alprazolam Confrm U Benzodiazepines Scrn 7-Amino Clonazepam Ur Nordiazepam Confirm U OH-ethylflurazepam U Lorazepam Cnf GC/MS U Oxazepam Confm GC/MS Ur Temazepam Confirm U OH-Triazolam Confirm U OH-Midazolam Confirm Ur Cocaine Metabolite U Marijuana (THC) Screen Current Inpatient Medications Current Inpatient Medications: Current Inpatient Medications Albuterol (Duoneb) 3 ml NEB Q2H PRN PRN Reason: dyspnea Stop: 02/05/19 07:28 Last Admin: 01/07/19 00:20 Dose: 3 ml Documented by: Albuterol (Ventolin Hfa) 2 puffs INH Q6H PRN PRN Reason: sob/wheezing Stop: 02/06/19 00:31 Enoxaparin Sodium (Lovenox) 120 mg SQ Q12 [facility] Stop: 02/06/19 08:59 Last Admin: 01/07/19 08:14 Dose: 120 mg Documented by: Gabapentin (Neurontin) 600 mg PO Q24H [facility] Stop: 01/09/19 22:01 Gabapentin (Neurontin) 600 mg PO Q8H [facility] Stop: 01/07/19 22:01 Last Admin: 01/07/19 06:04 Dose: 600 mg Documented by: Gabapentin (Neurontin) 600 mg PO Q12H [facility] Stop: 01/08/19 22:01 Hydralazine HCl (Apresoline) 25 mg PO TID [facility] Stop: 02/05/19 20:59 Last Admin: 01/07/19 08:21 Dose: Not Given Documented by: Lorazepam (Ativan) 1 mg in 2 mls @ 2 mls/min IV Q1H PRN; Protocol PRN Reason: Symptoms of alcohol withdrawal Stop: 02/05/19 09:29 Last Admin: 01/07/19 08:28 Dose: 2 mls/min Documented by: Lorazepam (Ativan) 2 mg in 4 mls @ 4 mls/min IV Q1H PRN; Protocol PRN Reason: Symptoms of alcohol withdrawal Stop: 02/05/19 09:29 Last Admin: 01/07/19 00:15 Dose: 4 mls/min Documented by: Lorazepam (Ativan) 3 mg in 6 mls @ 6 mls/min IV Q1H PRN; Protocol PRN Reason: Symptoms of alcohol withdrawal Ioversol (Optiray 320 125ml) 125 ml IV ONCE PRN PRN Reason: Interaction Checking Stop: 01/10/19 06:20 Last Admin: 01/06/19 06:22 Dose: 94 ml Documented by: Labetalol HCl (Normodyne) 100 mg PO TID [facility] Stop: 02/05/19 20:59 Last Admin: 01/07/19 08:14 Dose: 100 mg Documented by: Lamotrigine (Lamictal) 25 mg PO BID [facility] Stop: 02/05/19 20:59 Last Admin: 01/07/19 08:15 Dose: 25 mg Documented by: Losartan Potassium (Cozaar) 100 mg PO QAM [facility] Stop: 02/06/19 08:59 Last Admin: 01/07/19 08:14 Dose: 100 mg Documented by: Ondansetron HCl (Zofran) 4 mg IV Q6H PRN PRN Reason: Nausea Stop: 02/05/19 07:28 Spironolactone (Aldactone) 100 mg PO DAILY [facility] Stop: 02/06/19 00:34 Last Admin: 01/07/19 08:22 Dose: Not Given Documented by: Terazosin HCl (Hytrin) 5 mg PO HS [facility] Stop: 02/06/19 00:34 Last Admin: 01/07/19 00:44 Dose: 5 mg Documented by: Warfarin Sodium (Coumadin) 10 mg PO DAILY@1600 [facility] Stop: 02/05/19 15:59 Last Admin: 01/06/19 18:00 Dose: 10 mg Documented by: Warfarin Sodium (Coumadin) 2.5 mg PO DAILY@1600 [facility] Stop: 02/05/19 15:59 Last Admin: 01/06/19 17:57 Dose: 2.5 mg Documented by: CPT Code CPT Code 49515 [id number] (1) Alcohol withdrawal Complication of substance-induced condition: with unspecified complication Qualified Code(s): F10.239 - Alcohol dependence with withdrawal, unspecified (2) Benzodiazepine withdrawal Complication of substance-induced condition: with unspecified complication Qualified Code(s): F13.239 - Sedative, hypnotic or anxiolytic dependence with withdrawal, unspecified
[2019-01-07] MEDS: chlordiazePOXIDE HCl 25 MG CAP PO SCH ×2 (13:44→21:08)
[2019-01-07] MEDS ORDERED: GABAPENTIN 600 MG TAB PO SCH (14:00)
--- NOTE | 2019-01-07 14:55 | Hospitalist Progress Note ---
Date of Service January 07, 2019 Assessment & Plan (1) Alcohol withdrawal: Drinks ~1L vodka and takes ~20mg Xanax per day. - AURY protocol with Librium taper per psychiatry - Appreciate psychiatry assistance (2) Benzodiazepine withdrawal: As above (3) Substance abuse: As above (4) HTN (hypertension): Per patient, she has had a large secondary HTN work-up without any cause found. - Takes a variety of her medications on "as needed" basis: - Labetalol, spironolactone, and terazosin only if BP > 100/60 - Hydralazine, nicardipine, and losartan only if BP > 130/90 Reports that she takes her first set most of the time, but can go weeks without taking her second set of medications as her blood pressure will be controlled. For unknown reasons, it will go up, and she will need her second set of medications for a few days. - Monitor BP inpatient. (5) Bipolar disorder: Reportedly is on Lamictal from a PCP or psychiatrist. Will not give a name or let us contact anyone. - Lamotrigine level pending - Continued lamotrigine per psychiatry (6) Personal history of thromboembolic disease: The patient is on both warfarin and Lovenox which was verified by Haylee. - INR was 1.1 upon admission, indicating no recent use of warfarin - Dopplers and CTA chest were negative for thromboembolus on admission - Continue Lovenox and warfarin - Monitor INR - Stop Lovenox when INR > 2 (7) Obesity: Noted Subjective Frustrated by slow discharge and by her medications not being correct. Review of Systems Review of Systems: All systems reviewed & are unremarkable except as noted in HPI & below Physical Exam Constitutional: WD/WN, vitals as above + overweight Eyes: EOM intact bilaterally; no conjunctival abnormality ENMT: external ear and nose normal, oropharynx normal Neck: trachea midline, no thyromegaly normal visual inspection Respiratory: normal respiratory effort, lungs clear to auscultation no respiratory distress Cardiovascular: RRR, no murmur, no edema Gastrointestinal (Abdomen): Inspection/Auscultation: abdomen normal to inspection; abdomen not distended Musculoskeletal: no cyanosis or clubbing, extremities motor strength 5/5 Skin: no rashes, warm and dry Neurologic: moves all extremities and awake Psychiatric: Orientation: alert, oriented to person and cooperative Results & Data Vital Signs (Past 12 Hours) Vital Signs Temp Pulse Pulse Resp BP Pulse Ox 01/07/19 11:42 36.8 C 116 H 20 132/82 95 01/07/19 08:00 87 01/07/19 07:15 36.6 C 103 H 16 108/69 96 01/07/19 04:28 36.5 C 92 H 18 115/74 95 (1) Alcohol withdrawal Complication of substance-induced condition: with unspecified complication Qualified Code(s): F10.239 - Alcohol dependence with withdrawal, unspecified (2) Benzodiazepine withdrawal Complication of substance-induced condition: with unspecified complication Qualified Code(s): F13.239 - Sedative, hypnotic or anxiolytic dependence with withdrawal, unspecified (3) HTN (hypertension) Hypertension type: unspecified Qualified Code(s): I10 - Essential (primary) hypertension
[2019-01-07] MEDS: WARFARIN SOD 2.5 MG TAB PO SCH (15:03)
[2019-01-07] MEDS: WARFARIN SOD 10 MG TAB PO SCH (15:03)
[2019-01-08 06:34] LABS: INR 1.6 (0.9-1.1); Prothrombin Time 15.5 Seconds (9.0-12.0)
[2019-01-08] MEDS: lamoTRIgine 25 MG TAB PO SCH ×2 (09:11→21:06)
[2019-01-08] MEDS: SPIRONOLACTONE 100 MG TAB PO SCH (09:12)
[2019-01-08] MEDS: ENOXAPARIN INJ 120 MG/0.8 ML SYR SQ SCH ×2 (09:12→21:07)
[2019-01-08] MEDS: LOSARTAN POTASSIUM 50 MG TAB PO SCH (09:12)
[2019-01-08] MEDS: LABETALOL HCL 100 MG TAB PO SCH ×3 (09:13→21:07)
[2019-01-08] MEDS: AMLODIPINE BESYLATE 5 MG TAB PO SCH (09:14)
[2019-01-08] MEDS: GABAPENTIN 600 MG TAB PO SCH ×2 (09:15→21:06)
[2019-01-08] MEDS: chlordiazePOXIDE HCl 25 MG CAP PO SCH ×3 (09:18→21:05)
[2019-01-08] MEDS: LORAZEPAM 1MG IV ACTIVE PROTOCOL IV PRN (09:27)
--- NOTE | 2019-01-08 11:08 | Psychiatric Progress Note ---
Date of Service January 08, 2019 Impression / Recommendations Impression 33-year-old female with reported history of bipolar disorder and severe alcohol and alprazolam addiction who is admitted medically after transfer from the [facility] for withdrawal. She has been accepted at the [facility] on a 302 involuntary commitment for suicidality, but within hours of arrival was transferred to our ER. Her withdrawal symptoms are improving, and she is on gabapentin and chlordiazepoxide taper. She is requesting referral to inpatient psychiatric hospitals in the [facility] upon medical clearance. She is very much opposed to returning to the [facility], but states she wants to be discharged home if she cannot be transferred to her preferred facilities. She says she does not have transportation to get home and her family cannot come and get her, so may need to consider utilizing the [facility] transportation if she is discharged. (1) Bipolar disorder: 01/06 -very little information is available at this time, as there are no records from the [facility] describing patient's presenting symptoms or initial labs. She reports taking lamotrigine 25 mg twice daily, which was recently restarted for mood, and can be continued here. -Collateral information would be useful, but the patient states she has no supports or family and nobody that we can talk to to provide this. She states she has no current outpatient providers. -Patient is currently on a 302 involuntary commitment which will 01/10/2019 around 1 PM. We will therefore need to make a decision about the need to file for a 303 involuntary commitment by , to allow time for the hearing. We will continue to follow her and to gather information for the need for ongoing mental health treatment. 01/07 -patient is evasive regarding her last outpatient psychiatrist, declining to sign a release so that records can be obtained. -She reports lamotrigine and venlafaxine XR combination was helpful for her, but notes she decompensated when on venlafaxine without being on a good dose of a mood stabilizer. We will therefore start by increasing her lamotrigine to 100 mg daily. In another week, it can be increased to 200 mg daily. She reports taking 400 mg daily in the past. -She will need outpatient psychiatric care in her area upon completion of rehab. Her insurance is switching to her current [facility] at the beginning of January, and she will then be able to set up services. 01/08 -patient reports depression, irritability, and anxiety, with difficulty functioning, and is requesting referrals for inpatient psychiatric treatment to [place] in [facility], as these are near her family. She is not willing to go to any other facilities for psychiatric treatment, and at this point, I do not believe she requires involuntary commitment. She states she plans to go home if she is unable to go to her preferred facilities. Reviewed with her that this hospital does not have transportation services, but she may be able to use the [facility] transportation as she was initially a patient there. 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 Recommend aggressive treatment, is already on the gabapentin taper. 01/07 -patient reporting uncomfortable withdrawal symptoms, and is requiring as needed Ativan. Discussed with Dr. Snow, who agreed to adding Librium to her current withdrawal regimen -will start with 25 mg 3 times daily, and taper before discharge. Would not discharge her on any benzodiazepines due to the high risk of abuse/misuse/negative outcomes. -She is willing for inpatient rehab, and we will explore options. 01/08 -patient now declining rehab referrals, and states she cannot get outpatient providers currently due to upcoming insurance change? She is on gabapentin and chlordiazepoxide tapers. This physician is inpatient mental health versus discharge to home as above. Reviewed with Dr. Snow and discussed recommendations not to discharge her on controlled substances given t he high risk of abuse/misuse/negative outcomes. (3) Benzodiazepine withdrawal: See above. Risk Factors Assessment Male: No : Yes Health Problems: Yes Mental Health Diagnoses: Yes Substance Use Disorders: Yes Previous Psychiatric Hospitalization: Yes Hopelessness: No Protective Factors Assessment : No Responsible for Young Children: No Employed: No Supportive Family: Yes Absence of Any Risk Factors Above: Yes (Denies suicidality, willing for treatment.) Interval History Chief Complaint "I can't function". Review of Systems Notes Nausea and tremor improved Medication Trials Include but not limited to: Citalopram, paroxetine, sertraline, venlafaxine XR, aripiprazole, lamotrigine Subjective Subjective Patient was seen & assessed and interval progress reviewed liaison nurse and primary attending, Dr. Snow. She was started on chlordiazepoxide 25 mg 3 times daily yesterday, and in addition received 2 mg of lorazepam yesterday and 1 mg so far today. Her lamotrigine was increased to 50 mg twice daily. Psychiatric liaison nurse assisted her to retrieve her phone and wallet from the [facility]. She declined to sign a release for her family or previous psychiatrist in [place]. On my assessment today, she was seen with Dr. Vora. She reports she is anxious, worrying excessively, and is "all over the place." She denies suicidal thoughts, and her withdrawal symptoms are improving. She says she was able to get in touch with her family, and is not sure what her plan is, as she does not feel she can go to rehab right now because "I cannot function, having trouble getting out of bed in the morning, need to get my mental health straightened out." She says she cannot do outpatient treatment because her insurance is due to switch at the end of the month. She is adamantly opposed to returning to the [facility], stating that her doctor told her they did not have many of her medications. She feels she needs inpatient mental health treatment, but is only willing to go to a facility near [place] ([facility] or [facility] Summary of Past History Multiple previous psychiatric hospitalizations, including [facility], [place] (within the past month), [facility] Multiple previous rehabs in the [facility] Medication Trials Include but not limited to: Citalopram, paroxetine, sertraline, venlafaxine XR, aripiprazole, lamotrigine Physical Exam Psychiatric Orientation: alert Obese, wearing paper scrubs, adequate hygiene and grooming. Poor eye contact. Partially cooperative with the interview, irritable and sarcastic. Eye Contact: + poor eye contact Motor Behavior: steady gait and station and no abnormal motor movements No tremor observed. Irritated tone. Affect: + irritable affect Mood: + depressed mood and + anxious mood Thought Process: goal directed thought process Thought Content: reality based without delusions Suicidal Thoughts: denies suicidal thoughts Homicidal Thoughts: denies homicidal thoughts Hallucinations: no auditory hallucinations and no visual hallucinations Cognition: recent memory grossly intact, attention grossly intact and language grossly intact Insight: + impaired insight Judgement: + impaired judgement Vital Signs (Past 24 Hours) Last Vital Signs Temp 36.9 C 01/08/19 06:27 Pulse 94 H 01/08/19 06:27 Resp 20 01/08/19 06:27 BP 127/87 01/08/19 06:27 Pulse Ox 93 01/08/19 06:27 Results & Data Laboratory Results Laboratory Results - last 24 hr 01/08/19 05:42 PT 15.5 H INR 1.6 H Current Inpatient Medications Current Inpatient Medications: Current Inpatient Medications Albuterol (Duoneb) 3 ml NEB Q2H PRN PRN Reason: dyspnea Stop: 02/05/19 07:28 Last Admin: 01/07/19 00:20 Dose: 3 ml Documented by: Albuterol (Ventolin Hfa) 2 puffs INH Q6H PRN PRN Reason: sob/wheezing Stop: 02/06/19 00:31 Amlodipine Besylate (Norvasc) 5 mg PO QAM ZACHARIAH Stop: 02/07/19 08:59 Last Admin: 01/08/19 09:14 Dose: Not Given Documented by: Chlordiazepoxide HCl (Librium) 25 mg PO TID ZACHARIAH; Taper Stop: 01/12/19 13:59 Last Admin: 01/08/19 09:18 Dose: 25 mg Documented by: Enoxaparin Sodium (Lovenox) 120 mg SQ Q12 ZACHARIAH Stop: 02/06/19 08:59 Last Admin: 01/08/19 09:12 Dose: 120 mg Documented by: Gabapentin (Neurontin) 600 mg PO Q24H ZACHARIAH Stop: 01/09/19 22:01 Last Admin: 01/07/19 21:09 Dose: 600 mg Documented by: Gabapentin (Neurontin) 600 mg PO Q12H ZACHARIAH Stop: 01/08/19 22:01 Last Admin: 01/08/19 09:15 Dose: 600 mg Documented by: Hydralazine HCl (Apresoline) 25 mg PO TID ZACHARIAH Stop: 02/05/19 20:59 Last Admin: 01/08/19 09:12 Dose: Not Given Documented by: Lorazepam (Ativan) 1 mg in 2 mls @ 2 mls/min IV Q1H PRN; Protocol PRN Reason: Symptoms of alcohol withdrawal Stop: 02/05/19 09:29 Last Admin: 01/08/19 09:27 Dose: 2 mls/min Documented by: Lorazepam (Ativan) 2 mg in 4 mls @ 4 mls/min IV Q1H PRN; Protocol PRN Reason: Symptoms of alcohol withdrawal Stop: 02/05/19 09:29 Last Admin: 01/07/19 00:15 Dose: 4 mls/min Documented by: Lorazepam (Ativan) 3 mg in 6 mls @ 6 mls/min IV Q1H PRN; Protocol PRN Reason: Symptoms of alcohol withdrawal Ioversol (Optiray 320 125ml) 125 ml IV ONCE PRN PRN Reason: Interaction Checking Stop: 01/10/19 06:20 Last Admin: 01/06/19 06:22 Dose: 94 ml Documented by: Labetalol HCl (Normodyne) 100 mg PO TID [facility] Stop: 02/05/19 20:59 Last Admin: 01/08/19 09:13 Dose: 100 mg Documented by: Lamotrigine (Lamictal) 25 mg PO BID [facility] Stop: 02/05/19 20:59 Last Admin: 01/08/19 09:11 Dose: 25 mg Documented by: Losartan Potassium (Cozaar) 100 mg PO QAM [facility] Stop: 02/06/19 08:59 Last Admin: 01/08/19 09:12 Dose: Not Given Documented by: Ondansetron HCl (Zofran) 4 mg IV Q6H PRN PRN Reason: Nausea Stop: 02/05/19 07:28 Spironolactone (Aldactone) 100 mg PO DAILY [facility] Stop: 02/06/19 00:34 Last Admin: 01/08/19 09:12 Dose: 100 mg Documented by: Terazosin HCl (Hytrin) 5 mg PO HS [facility] Stop: 02/06/19 00:34 Last Admin: 01/07/19 21:17 Dose: 5 mg Documented by: Warfarin Sodium (Coumadin) 10 mg PO DAILY@1600 [facility] Stop: 02/05/19 15:59 Last Admin: 01/07/19 15:03 Dose: 10 mg Documented by: Warfarin Sodium (Coumadin) 2.5 mg PO DAILY@1600 [facility] Stop: 02/05/19 15:59 Last Admin: 01/07/19 15:03 Dose: 2.5 mg Documented by: CPT Code CPT Code 06364 (1) Alcohol withdrawal Complication of substance-induced condition: with unspecified complication Qualified Code(s): F10.239 - Alcohol dependence with withdrawal, unspecified (2) Benzodiazepine withdrawal Complication of substance-induced condition: with unspecified complication Qualified Code(s): F13.239 - Sedative, hypnotic or anxiolytic dependence with withdrawal, unspecified
--- NOTE | 2019-01-08 14:12 | Hospitalist Progress Note ---
Date of Service January 08, 2019 Assessment & Plan (1) Alcohol withdrawal: Drinks ~1L vodka and takes ~20mg Xanax per day. - AURY protocol with Librium taper per psychiatry - Appreciate psychiatry assistance - On 01/07, requiring minimal additional benzos - Will taper Librium to BID today. Last dose as early as tomorrow. Gabapentin will also finish tomorrow evening. After last doses, she would be medically cleared for discharge to an inpatient psychiatry unit if available. (2) Benzodiazepine withdrawal: As above (3) Substance abuse: As above (4) HTN (hypertension): Per patient, she has had a large secondary HTN work-up without any cause found. - Takes a variety of her medications on "as needed" basis: - Labetalol, spironolactone, and terazosin only if BP > 100/60 - Hydralazine, nicardipine, and losartan only if BP > 130/90 Reports that she takes her first set most of the time, but can go weeks without taking her second set of medications as her blood pressure will be controlled. For unknown reasons, it will go up, and she will need her second set of medications for a few days. - Monitor BP inpatient - On admission, BP was 140/120; however, since then it has been controlled with all readings at 130/100 or less. Her HTN does not require inpatient titration, so this is not a deterrent from being discharged when stable from an alcohol standpoint. (5) Bipolar disorder: Reportedly is on Lamictal from a PCP or psychiatrist. Will not give a name or let us contact anyone. - Lamotrigine level pending - Continued lamotrigine per psychiatry - Can increase to 100mg PO BID on 01/12 per psych recs. (6) Personal history of thromboembolic disease: The patient is on both warfarin and Lovenox which was verified by Haylee. - INR was 1.1 upon admission, indicating no recent use of warfarin - Dopplers and CTA chest were negative for thromboembolus on admission - Continue Lovenox and warfarin - Monitor INR - Stop Lovenox when INR > 2 (7) Obesity: Noted Subjective Doing well. Wants to leave the hospital. Review of Systems Review of Systems: All systems reviewed & are unremarkable except as noted in HPI & below Physical Exam Constitutional: WD/WN, vitals as above + overweight Eyes: EOM intact bilaterally; no conjunctival abnormality ENMT: external ear and nose normal, oropharynx normal Neck: trachea midline, no thyromegaly normal visual inspection Respiratory: normal respiratory effort, lungs clear to auscultation no respiratory distress Cardiovascular: RRR, no murmur, no edema Gastrointestinal (Abdomen): Inspection/Auscultation: abdomen normal to inspection; abdomen not distended Musculoskeletal: no cyanosis or clubbing, extremities motor strength 5/5 Skin: no rashes, warm and dry Neurologic: moves all extremities and awake Psychiatric: Orientation: alert, oriented to person and cooperative Results & Data Vital Signs (Past 12 Hours) Vital Signs Temp Pulse Pulse Resp BP BP Pulse Ox 01/08/19 13:00 36.9 C 100 H 18 133/99 96 01/08/19 06:27 36.9 C 94 H 20 127/87 93 PG Care Time/CCT Total # of Minutes Spent Total Time Spent with Patient: Total time spent is greater than 50% in coordination of care (as documented) at patient's floor/unit and/or counseling patient: (1) Alcohol withdrawal Complication of substance-induced condition: with unspecified complication Qualified Code(s): F10.239 - Alcohol dependence with withdrawal, unspecified (2) Benzodiazepine withdrawal Complication of substance-induced condition: with unspecified complication Qualified Code(s): F13.239 - Sedative, hypnotic or anxiolytic dependence with withdrawal, unspecified (3) HTN (hypertension) Hypertension type: unspecified Qualified Code(s): I10 - Essential (primary) hypertension
[2019-01-08] MEDS: WARFARIN SOD 10 MG TAB PO SCH (16:35)
[2019-01-08] MEDS: WARFARIN SOD 2.5 MG TAB PO SCH (16:35)
[2019-01-08] MEDS: TERAZOSIN HCL 5 MG CAP PO SCH (21:07)
[2019-01-09 06:10] LABS: INR 1.5 (0.9-1.1); Prothrombin Time 14.6 Seconds (9.0-12.0)
[2019-01-09] MEDS: SPIRONOLACTONE 100 MG TAB PO SCH (08:28)
[2019-01-09] MEDS: LOSARTAN POTASSIUM 50 MG TAB PO SCH (08:29)
[2019-01-09] MEDS: chlordiazePOXIDE HCl 25 MG CAP PO SCH ×2 (08:30→20:07)
[2019-01-09] MEDS: lamoTRIgine 25 MG TAB PO SCH ×2 (08:30→20:06)
[2019-01-09] MEDS: ENOXAPARIN INJ 120 MG/0.8 ML SYR SQ SCH ×2 (08:30→20:08)
[2019-01-09] MEDS: LABETALOL HCL 100 MG TAB PO SCH ×3 (08:31→20:08)
[2019-01-09] MEDS: AMLODIPINE BESYLATE 5 MG TAB PO SCH (08:32)
[2019-01-09 08:35] LABS: 7-Aminoclonaz, Confirm NEGATIVE NG/ML (CUTOFF=25); Hydro-Alp Ur, GC/MS NEGATIVE NG/ML (CUTOFF=25); Hydroxyethylflurazepam, Conf NEGATIVE NG/ML (CUTOFF=50); Hydroxytriazolam NEGATIVE NG/ML (CUTOFF=50); Lorazepam, Ur GC/MS >2000 NG/ML (CUTOFF=50); Nordiazepam, Confirm NEGATIVE NG/ML (CUTOFF=50); Oxazepam Ur, GC/MS 166 NG/ML (CUTOFF=50); Temazepam, Confirm NEGATIVE NG/ML (CUTOFF=50)
[2019-01-09] MEDS: ONDANSETRON INJ 2 MG/ML 2 ML VIAL IV PRN ×2 (12:09→21:43)
--- NOTE | 2019-01-09 13:03 | Discharge Summary ---
Date of Service January 09, 2019 Admission HPI Per Admitting Provider MR. Araya records available from the [facility] or [facility]. According to our records, the patient was transferred from the [facility] overnight for active withdrawal symptoms. She had just been admitted there yesterday on a 302 involuntary commitment on referral from [facility]. Per ER case management, the 302 petition states that the patient endorsed suicidal thoughts with a plan to overdose or walk in front of a car. En route to the hospital she received Lorazepam 4 mg and Versed 5 mg. In the ER, she reported drinking a liter of liquor daily for the past 10 years, and using 20 mg of alprazolam daily for the last 14 years. She reported a history of delirium tremens and withdrawal seizures, hypertension, and PE/DVT for which she is on Coumadin. She said she went to [facility] and they were trying to refer her for dual diagnosis treatment, but instead sent her to the [facility]. A drug screen was ordered in the ER but not obtained. She was started on AWSS withdrawal protocol with gabapentin taper and lorazepam as needed. On my assessment, she is somnolent but partially cooperative with the interview. She states she feels "terrible," is nauseated and tremulous. She confirms she has been drinking a liter of vodka daily and taking 20 mg of alprazolam daily for many years. She also reports a remote history of opiate abuse, last about 6 years ago. She states she went to a local hospital requesting voluntary dual diagnosis treatment, and did not want to go to the [facility] because she was concerned about the severity of her medical conditions, but because they accepted her, was forced to go by being placed on a 302. She states she was hospitalized in an ICU in 07/2018 and 10/2018 for PEs and hypotension. She reports taking lamotrigine 25 mg twice daily, which she says was restarted within the past few months. She states she has no supports, no family, and nobody she would like to notify or involving her treatment. Due to somnolence, she was unable to participate in a detailed psychiatric assessment, and only answered questions briefly. Principal Diagnosis Alcohol and benzo withdrawal Discharge Exam Constitutional WD/WN, vitals as above + overweight Eyes EOM intact bilaterally; no conjunctival abnormality ENMT external ear and nose normal, oropharynx normal Neck trachea midline, no thyromegaly normal visual inspection Respiratory normal respiratory effort, lungs clear to auscultation no respiratory distress Cardiovascular RRR, no murmur, no edema Gastrointestinal (Abdomen) Inspection/Auscultation: abdomen normal to inspection; abdomen not distended Musculoskeletal no cyanosis or clubbing, extremities motor strength 5/5 Skin no rashes, warm and dry Neurologic moves all extremities and awake Psychiatric Orientation: alert, oriented to person and cooperative Discharge Data Allergies Allergy/AdvReac Type Severity Reaction Status Date / Time quetiapine [From Seroquel] Allergy Severe Anaphylaxis Verified 01/06/19 03:06 clonazepam [From Klonopin] Allergy Intermediate Hives Verified 01/06/19 03:06 Consultations 01/06/19 04:01 ED Decision to Admit Stat 01/06/19 07:29 Consult Case Management - Discharge Planning Routine Consult Psychiatry Routine Ordered Studies 01/06/19 05:00 CT angio chest PE protocol Urgent US venous doppler [facility] Urgent Hospital Course (1) Alcohol withdrawal: Drinks ~1L vodka and takes ~20mg Xanax per day. - AURY protocol with Librium taper per psychiatry - Appreciate psychiatry assistance - On 01/07, requiring minimal additional benzos - On 01/09, she had started refusing her gabapentin and Librium tapers. She wanted to go home. She was cleared by psychiatry to leave. (2) Benzodiazepine withdrawal: As above (3) Substance abuse: As above (4) HTN (hypertension): Per patient, she has had a large secondary HTN work-up without any cause found. - Takes a variety of her medications on "as needed" basis: - Labetalol, spironolactone, and terazosin only if BP > 100/60 - Hydralazine, nicardipine, and losartan only if BP > 130/90 Reports that she takes her first set most of the time, but can go weeks without taking her second set of medications as her blood pressure will be controlled. For unknown reasons, it will go up, and she will need her second set of medications for a few days. - Monitor BP inpatient - Her BP was generally well-controlled at around 140/70. (5) Bipolar disorder: Reportedly is on Lamictal from a PCP or psychiatrist. Will not give a name or let us contact anyone. - Lamotrigine level pending - Continued lamotrigine per psychiatry - Can increase to 100mg PO BID on 01/12 per psych recs. (6) Personal history of thromboembolic disease: The patient is on both warfarin and Lovenox which was verified by Haylee. - INR was 1.1 upon admission, indicating no recent use of warfarin. - Dopplers and CTA chest were negative for thromboembolus on admission - Continued Lovenox and warfarin - On discharge, INR was 1.5. Instructed to continue both until seen by PCP. (7) Obesity: Noted Total Time Total Time Spent Total Time Spent (In Minutes): 35 Total Time Includes: Examination of the Patient and Communication With Other Providers Discharge Plan Discharge Items Patient Disposition: Home - Self-Care Reason For Visit: MULTI-DRUG WITHDRAWAL Discharge Diagnosis: Alcohol and Xanax withdrawal Discharge Goals: Decrease discomfort and Diagnostic testing Activity: Resume your previous activity Non-emergency contact: Primary Care Provider Call non-emergency contact if: your symptoms worsen Follow-up/Referrals: Jerica Leach [Primary Care Provider] - Diet: Regular Addtl Provider Instructions: Don't drink. Don't use Xanax. Please seek rehab and psychiatric assistance. Your INR was 1.5 on the day of discharge. You should continue to take both the Lovenox and warfarin and follow up with your PCP on Saturday to have your INR checked to see if you need to continue your Lovenox injections. Prescriptions: Continued Breo Ellipta 100-25 mcg/dose Blister With Device 1 inh INHALATION DAILY RF: 0 albuterol sulfate 90 mcg/actuation Hfa Aerosol Inhaler 2 puff INHALATION Q6H PRN (Reason: sob/wheezing) RF: 0 lamotrigine [Lamictal] 25 mg Tablet 25 mg PO BID RF: 0 hydralazine 25 mg Tablet 25 mg PO TID RF: 0 losartan 100 mg Tablet 100 mg PO DAILY RF: 0 labetalol 100 mg Tablet 100 mg PO TID RF: 0 nicardipine 20 mg Capsule 40 mg PO BID RF: 0 enoxaparin [Lovenox] 120 mg/0.8 mL Syringe 120 mg SUBCUT Q12H RF: 0 terazosin 5 mg Capsule 5 mg PO HS RF: 0 spironolactone [Aldactone] 100 mg Tablet 100 mg PO DAILY RF: 0 Stand-Alone Forms: [facility] Discharge Orders: Discharge Order (Routine); Ordered 01/09/19 Ordered By: Migue Snow Admission Data Admit Date/Time: 01/06/19 05:00 Attending Provider: Migue Snwo Admit Provider: Hany Wolfe Primary Care Provider: Jerica Leach Other Providers: Soraida Upton ; Migue Snow Service: Telemetry
[2019-01-09] MEDS ORDERED: Nursing to Pharmacy Communication ONE (15:13)
[2019-01-09] MEDS ORDERED: chlordiazePOXIDE HCl 25 MG CAP PO ONE (15:20)
[2019-01-09] MEDS: LORAZEPAM 1MG IV ACTIVE PROTOCOL IV PRN ×2 (15:25→17:40)
--- NOTE | 2019-01-09 15:38 | Communication Note ---
Date of Service: January 09, 2019 I met with the patient this afternoon in order to evaluate her current mental status, assess her response to treatment, review treatment options with the jori lynn, evaluate the patient's capacity within the context of her threats to leave AGAINST MEDICAL ADVICE, and make treatment recommendations. On examination, I found the patient to be quite tremulous. The tremors were coarse, 3-6 beats per second, and involved all 4 extremities, as well as the times, her torso. When I pointed this out to her, she said, "I am withdrawing from Xanax." She tells me that she has been using between 20 and 30 mg of Xanax daily, together with a liter of vodka. She reports that she has been abusing mood altering chemical substance since the age of approximately 14. Although she reports that she carries a diagnosis of bipolar disorder, she is unable to give a history that would indicate that her mood alterations have occurred independent of her habitual abuse of mood altering chemical substances, ranging from opioids to alcohol to benzodiazepines. A check of the PDMP for [facility] does not reveal a history of controlled drug prescriptions, and is not entirely clear if the patient was identified in the system because no masses that confirmed that the patient had been found was provided in the check. (Although the patient currently lives in [place], she had recently in [place], not far from [facility] On mental status examination the patient was found to be reasonably cooperative, but slightly bumptious and irritable. She was fully oriented. Her speech was delivered in a somewhat shaky fashion, but was at a normal rate and volume. Thought processes demonstrated tight associations, and there was no evidence of delusional materials in the content. Her thought content was most remarkable for a tendency to externalize responsibility. She seemed unwilling to consider that her substantial mood alterations and symptoms such as excess sedation and lack of motivation and lack of energy could anyway be attributable to her acknowledged abuse of mood altering sedative medications, namely alcohol and alprazolam (Xanax). She also blamed the hospital for not discharging her "before [her] withdrawal got bad," and believes that if she had been discharged this morning she could have somehow made her way to [place], [place], where her car is located (as well as her keys, including keys to her apartment in [place]) and that she could have return to her apartment topresumably where she would have access to alcohol and alprazolam. She reports that she has no suicidal thoughts, and continues to express an interest and "getting [her] car and going home to [place]." She tells us that the reason she has refused Librium is that she does not want to be sedated, within the context of her expectation that she will be picking up her car today and [place] not want to be impaired. When it was pointed out to her that she presumably drives her car while using Xanax, she explained that Xanax does not affect her in the same way as Librium, and that in any event she does not operate a motor vehicle while using Xanax. Similarly, she reports that she had been on gabapentin in the past and that it causes her to "get really foggy," and she said that she did not want to try to operate a motor vehicle while under the influence of gabapentin (and/or Librium). The patient also blames the hospital in [place] for sending her to [facility] involuntarily when she refused to be [facility]. I tried a number of times to explain to her that psychiatric treatment would be useless in the face of such heavy abuse of mood altering chemical substances, and her case alprazolam and alcohol and, in the past, opioids, and that she would first need to be fully detoxified and avail herself of intensive, long-term chemical dependency treatmentgiven her extensive and prolonged history of substance misuse. The patient insisted that she would not agree to go to a chemical dependency rehabilitation program, and, at this point, tells us that she "just wants to go home." I am not convinced that the patient would meet criteria for bipolar disorder, given the fact that she seems not to have met criteria for this disorder independent of her habitual and ongoing abuse of mood altering chemical substances, beginning at around the age of 14. On mental status examination, she is found to be alert, fully oriented, free of any psychotic symptoms, not suicidal, not homicidal, and although she demonstrates a decided tendency to externalize responsibility for her own behaviors and circumstances, I do not find that she presently lacks substantial capacity to make healthcare decisions, including a decision to leave the hospital AGAINST MEDICAL ADVICE --although, of course, this would be subject to change based upon the progression of the patient's withdrawal and detoxification. Of note is the fact that she tells me that she does not currently wish to leave the hospital against our advice because she is aware that she does not have the means to get the [place] in order to seed cone picker her car, and she also recognizes that she is actively withdrawing from chemical substances, either benzodiazepines or, perhaps more li roman in this case, alcohol. We explored various options with her following discharge from the hospital, such as being sent by bus to her home in [place], and then arranging to get to [place] from [place] in order to seed cone picker her car. However, the patient explains that she did not be able to get into her apartment in [place] because she gave her keys, including her car keys in her apartment keys, to her foster family in [place] because she believed, at the time, she was being admitted to the hospital at [place]. She also understands that we are not recommending that she leave the hospital at this point because of persistent withdrawal, within the context of a past history of complicated withdrawal that has included withdrawal seizures on more than one occasion. She is aware that there seems to be no public transportation between [place] and [place], but, nevertheless, she feels that it is the obligation of [facility] to "figure out how to make it happen." The patient insists that she has no friends or family that can assist her in this regard. She has a foster father with whom she is fairly close and who she identifies as a source of suppo rt. However, she tells us that he does not drive else in her foster family is able to operate a motor vehicle. She also says that she has no friends that would be willing to pick her up upon discharge. We have been in touch with [facility], the facility to which the patient had been accepted and to which she had been briefly been admitted prior to being transferred to [facility] for detoxification. They declined to assist. Although it is difficult to make a definitive psychiatric diagnosis at this time given the fact that she is actively withdrawing from chemical substances, my suspicion is that if she does in fact have a psychiatric diagnosis it is perhaps most likely to be borderline personality disorder, with a primary diagnosis of alcohol and other sedative (benzodiazepines). I am not recommending psychiatric hospitalization at this time, and believe that detoxification should be continued and completed before any reassessment.
[2019-01-09] MEDS: WARFARIN SOD 2.5 MG TAB PO SCH (17:33)
[2019-01-09] MEDS: WARFARIN SOD 10 MG TAB PO SCH (17:34)
--- NOTE | 2019-01-09 17:43 | Hospitalist Progress Note ---
Date of Service January 09, 2019 Assessment & Plan (1) Alcohol withdrawal: Drinks ~1L vodka and takes ~20mg Xanax per day. - AURY protocol with Librium taper per psychiatry - Appreciate psychiatry assistance - On 01/07, requiring minimal additional benzos - On 01/09, she had started refusing her gabapentin and Librium tapers. She wanted to go home. She was cleared by psychiatry to leave AMA; however, as she had no ride to go home, she continued to withdraw and ended up accepting some Librium and Ativan. Will trend needs tomorrow. (2) Benzodiazepine withdrawal: As above (3) Substance abuse: As above (4) HTN (hypertension): Per patient, she has had a large secondary HTN work-up without any cause found. - Takes a variety of her medications on "as needed" basis: - Labetalol, spironolactone, and terazosin only if BP > 100/60 - Hydralazine, nicardipine, and losartan only if BP > 130/90 Reports that she takes her first set most of the time, but can go weeks without taking her second set of medications as her blood pressure will be controlled. For unknown reasons, it will go up, and she will need her second set of medications for a few days. - Monitor BP inpatient - Her BP was generally well-controlled at around 140/70. (5) Bipolar disorder: Reportedly is on Lamictal from a PCP or psychiatrist. Will not give a name or let us contact anyone. - Lamotrigine level pending - Continued lamotrigine per psychiatry - Can increase to 100mg PO BID on 01/12 per psych recs. (6) Personal history of thromboembolic disease: The patient is on both warfarin and Lovenox which was verified by [facility]. - INR was 1.1 upon admission, indicating no recent use of warfarin. - Dopplers and CTA chest were negative for thromboembolus on admission - Continued Lovenox and warfarin - On 01/09, INR was 1.5. Instructed to continue both until seen by PCP. (7) Obesity: Noted Subjective Feeling more tremulous. Review of Systems Review of Systems: All systems reviewed & are unremarkable except as noted in HPI & below Physical Exam Constitutional: WD/WN, vitals as above + overweight Eyes: EOM intact bilaterally; no conjunctival abnormality ENMT: external ear and nose normal, oropharynx normal Neck: trachea midline, no thyromegaly normal visual inspection Respiratory: normal respiratory effort, lungs clear to auscultation no re spiratory distress Cardiovascular: RRR, no murmur, no edema Gastrointestinal (Abdomen): Inspection/Auscultation: abdomen normal to inspection; abdomen not distended Musculoskeletal: no cyanosis or clubbing, extremities motor strength 5/5 Skin: no rashes, warm and dry Neurologic: moves all extremities and awake Psychiatric: Orientation: alert, oriented to person and cooperative Results & Data Vital Signs (Past 12 Hours) Vital Signs Temp Pulse Pulse Resp BP BP Pulse Ox 01/09/19 17:36 37 C 106 H 22 174/78 H 96 01/09/19 13:11 36.7 C 100 H 100 H 18 141/69 H 123/70 95 01/09/19 13:00 141/69 H 01/09/19 11:30 36.7 C 100 H 18 95 01/09/19 07:04 36.7 C 95 H 24 123/70 95 PG Care Time/CCT Total # of Minutes Spent Total Time Spent with Patient: Total time spent is greater than 50% in coordination of care (as documented) at patient's floor/unit and/or counseling patient: (1) Alcohol withdrawal Complication of substance-induced condition: with unspecified complication Qualified Code(s): F10.239 - Alcohol dependence with withdrawal, unspecified (2) Benzodiazepine withdrawal Complication of substance-induced condition: with unspecified complication Qualified Code(s): F13.239 - Sedative, hypnotic or anxiolytic dependence with withdrawal, unspecified (3) HTN (hypertension) Hypertension type: unspecified Qualified Code(s): I10 - Essential (primary) hypertension
[2019-01-09] MEDS: LORAZEPAM 2MG IV ACTIVE PROTOCOL IV PRN (20:07)
[2019-01-09] MEDS: TERAZOSIN HCL 5 MG CAP PO SCH (20:08)
[2019-01-09] MEDS ORDERED: GABAPENTIN 600 MG TAB PO SCH (22:00)
[2019-01-10] MEDS: ONDANSETRON INJ 2 MG/ML 2 ML VIAL IV PRN ×2 (03:21→09:20)
[2019-01-10] MEDS: LORAZEPAM 1MG IV ACTIVE PROTOCOL IV PRN ×2 (03:21→09:21)
[2019-01-10 06:19] LABS: INR 1.4 (0.9-1.1); Prothrombin Time 14.2 Seconds (9.0-12.0)
[2019-01-10] MEDS: SPIRONOLACTONE 100 MG TAB PO SCH (09:15)
[2019-01-10] MEDS: LOSARTAN POTASSIUM 50 MG TAB PO SCH (09:15)
[2019-01-10] MEDS: lamoTRIgine 25 MG TAB PO SCH (09:16)
[2019-01-10] MEDS: ENOXAPARIN INJ 120 MG/0.8 ML SYR SQ SCH (09:16)
[2019-01-10] MEDS: AMLODIPINE BESYLATE 5 MG TAB PO SCH (09:17)
[2019-01-10] MEDS: LABETALOL HCL 100 MG TAB PO SCH (09:17)
--- NOTE | 2019-01-10 14:10 | Discharge Summary ---
Date of Service January 10, 2019 Admission HPI Per Admitting Provider MR. Araya records available from the [facility] or [facility]. According to our records, the patient was transferred from the [facility] overnight for active withdrawal symptoms. She had just been admitted there yesterday on a 302 involuntary commitment on referral from [facility]. Per ER case management, the 302 petition states that the patient endorsed suicidal thoughts with a plan to overdose or walk in front of a car. En route to the hospital she received Lorazepam 4 mg and Versed 5 mg. In the ER, she reported drinking a liter of liquor daily for the past 10 years, and using 20 mg of alprazolam daily for the last 14 years. She reported a history of delirium tremens and withdrawal seizures, hypertension, and PE/DVT for which she is on Coumadin. She said she went to [facility] and they were trying to refer her for dual diagnosis treatment, but instead sent her to the [facility]. A drug screen was ordered in the ER but not obtained. She was started on AWSS withdrawal protocol with gabapentin taper and lorazepam as needed. On my assessment, she is somnolent but partially cooperative with the interview. She states she feels "terrible," is nauseated and tremulous. She confirms she has been drinking a liter of vodka daily and taking 20 mg of alprazolam daily for many years. She also reports a remote history of opiate abuse, last about 6 years ago. She states she went to a local hospital requesting voluntary dual diagnosis treatment, and did not want to go to the [facility] because she was concerned about the severity of her medical conditions, but because they accepted her, was forced to go by being placed on a 302. She states she was hospitalized in an ICU in 07/2018 and 10/2018 for PEs and hypotension. She reports taking lamotrigine 25 mg twice daily, which she says was restarted within the past few months. She states she has no supports, no family, and nobody she would like to notify or involving her treatment. Due to somnolence, she was unable to participate in a detailed psychiatric assessment, and only answered questions briefly. Principal Diagnosis Alcohol and benzo withdrawal Discharge Exam Constitutional WD/WN, vitals as above + overweight Eyes EOM intact bilaterally; no conjunctival abnormality ENMT external ear and nose normal, oropharynx normal Neck trachea midline, no thyromegaly normal visual inspection Respiratory normal respiratory effort, lungs clear to auscultation no respiratory distress Cardiovascular RRR, no murmur, no edema Gastrointestinal (Abdomen) Inspection/Auscultation: abdomen normal to inspection; abdomen not distended Musculoskeletal no cyanosis or clubbing, extremities motor strength 5/5 Skin no rashes, warm and dry Neurologic moves all extremities and awake Psychiatric Orientation: alert, oriented to person and cooperative Discharge Data Allergies Allergy/AdvReac Type Severity Reaction Status Date / Time quetiapine [From Seroquel] Allergy Severe Anaphylaxis Verified 01/06/19 03:06 clonazepam [From Klonopin] Allergy Intermediate Hives Verified 01/06/19 03:06 Consultations 01/06/19 04:01 ED Decision to Admit Stat 01/06/19 07:29 Consult Case Management - Discharge Planning Routine Consult Psychiatry Routine Ordered Studies 01/06/19 05:00 CT angio chest PE protocol Urgent US venous doppler [facility] Urgent Hospital Course (1) Alcohol withdrawal: Drinks ~1L vodka and takes ~20mg Xanax per day. - AURY protocol with Librium taper per psychiatry - Appreciate psychiatry assistance - On 01/07, requiring minimal additional benzos - On 01/09, she had started refusing her gabapentin and Librium tapers. She wanted to go home. She was cleared by psychiatry to leave AMA; however, as she had no ride to go home, she continued to withdraw and ended up accepting some Librium and Ativan. - On 01/10, she decided to leave. She had minimal withdrawal symptoms (some shaking and reported anxiety; tachycardia), but wanted to return home. She was encouraged to abstain from alcohol and benzos and follow up with her PCP. (2) Benzodiazepine withdrawal: As above (3) Substance abuse: As above (4) HTN (hypertension): Per patient, she has had a large secondary HTN work-up without any cause found. - Takes a variety of her medications on "as needed" basis: - Labetalol, spironolactone, and terazosin only if BP > 100/60 - Hydralazine, nicardipine, and losartan only if BP > 130/90 Reports that she takes her first set most of the time, but can go weeks without taking her second set of medications as her blood pressure will be controlled. For unknown reasons, it will go up, and she will need her second set of medications for a few days. - Monitor BP inpatient - Her BP was generally well-controlled at around 140/70. (5) Bipolar disorder: Reportedly is on Lamictal from a PCP or psychiatrist. Will not give a name or let us contact anyone. - Lamotrigine level pending - Continued lamotrigine per psychiatry - Can increase to 100mg PO BID on 01/12 per psych recs. (6) Personal history of thromboembolic disease: The patient is on both warfarin and Lovenox which was verified by [facility]. - INR was 1.1 upon admission, indicating no recent use of warfarin. - Dopplers and CTA chest were negative for thromboembolus on admission - Continued Lovenox and warfarin - On 01/09, INR was 1.5. Instructed to continue both until seen by PCP. (7) Obesity: Noted Total Time Total Time Spent Total Time Spent (In Minutes): 35 Total Time Includes: Examination of the Patient, Discharge Planning and Medication Reconciliation Discharge Plan Discharge Items Patient Disposition: Home - Self-Care Reason For Visit: MULTI-DRUG WITHDRAWAL Discharge Diagnosis: Alcohol and Xanax withdrawal Discharge Goals: Decrease discomfort and Diagnostic testing Activity: Resume your previous activity Non-emergency contact: Primary Care Provider Call non-emergency contact if: your symptoms worsen Follow-up/Referrals: Jerica Leach [Primary Care Provider] - Diet: Regular Addtl Provider Instructions: Don't drink. Don't use Xanax. Please seek rehab and psychiatric assistance. Your INR was 1.5 on the day of discharge. You should continue to take both the Lovenox and warfarin and follow up with your PCP on Saturday to have your INR checked to see if you need to continue your Lovenox injections. Prescriptions: Continued Breo Ellipta 100-25 mcg/dose Blister With Device 1 inh INHALATION DAILY RF: 0 albuterol sulfate 90 mcg/actuation Hfa Aerosol Inhaler 2 puff INHALATION Q6H PRN (Reason: sob/wheezing) RF: 0 lamotrigine [Lamictal] 25 mg Tablet 25 mg PO BID RF: 0 hydralazine 25 mg Tablet 25 mg PO TID RF: 0 losartan 100 mg Tablet 100 mg PO DAILY RF: 0 labetalol 100 mg Tablet 100 mg PO TID RF: 0 nicardipine 20 mg Capsule 40 mg PO BID RF: 0 enoxaparin [Lovenox] 120 mg/0.8 mL Syringe 120 mg SUBCUT Q12H RF: 0 terazosin 5 mg Capsule 5 mg PO HS RF: 0 spironolactone [Aldactone] 100 mg Tablet 100 mg PO DAILY RF: 0 Stand-Alone Forms: [facility] Discharge Orders: Discharge Order (Routine); Ordered 01/10/19 Ordered By: Migue Snow Admission Data Admit Date/Time: 01/06/19 05:00 Attending Provider: Migue Snow Admit Provider: Hany Wolfe Primary Care Provider: Jerica Leach Other Providers: Soraida Upton ; Migue Snow Service: Telemetry Other Interventions: Discharge Summary Assessment (RN) Last Done: 01/09/19 13:11 DC Date/Time DO NOT enter until pt leaves facility: 01/10/19 12:41
[2019-01-10] MEDS ORDERED: WARFARIN SOD 5 MG TAB PO SCH (16:00)
== END 2019-01-10 12:41 | disposition home or self-care (01) | DRG 897 ==
LOC: ED 02:46 → SUATTDRO 05:00 → 2S 05:00